=== PATIENT | male | born 1935 | race Two or more races ===

== ENCOUNTER → 2016-12-09 | Outpatient (CLI) | payer OTHER ==
[~2016-12-09] MED LIST: ASPI81CH43 GT; ATEN-60 OR; SIMV-13 OR; [UNRECOGNIZED DRUG - CODE] OR
== END | disposition home or self-care (01) ==
LOC: XYW 09:12
DX: R42 Dizziness and giddiness (principal)
CPT/HCPCS: 93886

== ENCOUNTER 2016-12-30 06:42 | Inpatient (IN) | payer OTHER ==
[~2016-12-30] VITALS: Ht 167.6 cm; Wt 97.6 kg
[~2016-12-30 06:42] MED LIST changes: -ASPI81CH43 GT; +ASPI81CH43 PO
[2016-12-30] MEDS ORDERED: SODIUM CHLORIDE 0.9% 1,000 ML IV ONE (07:01)
[2016-12-30 08:29] LABS: Albumin 3.5 g/dL (3.4-5.0); Alkaline Phosphatase 88 U/L (45-117); Anion Gap 5 (5-15); Aspartate Aminotransferase 54 U/L (15-37); BUN/Creatinine Ratio 12.6; Blood Urea Nitrogen 12 mg/dL (7-18); Calcium 8.2 mg/dL (8.5-10.1); Carbon Dioxide 26 mmol/L (21-32); Chloride 107 mmol/L (98-107); GFR African American 98 mL/min; GFR Non-African American 81 mL/min; Glucose 113 mg/dL (74-106); Magnesium 2.4 mg/dL (1.6-2.6); Potassium 4.4 mmol/L (3.5-5.1); Sodium 138 mmol/L (136-145); Total Protein 6.7 g/dL (6.4-8.2)
[2016-12-30 08:33] LABS: Basophils # (auto) 0 uL; Basophils % (auto) 0.3 % (0.0-2.0); DEFINITIVE VIEW TRANSMISSION; Eosinophils # (auto) 0 uL; Eosinophils % (auto) 0.5 % (0.0-7.0); Hematocrit 39.5 % (41.0-53.0); Hemoglobin 13.5 g/dL (13.5-17.5); Lymphocytes % (auto) 14.4 % (10.0-50.0); Mean Corpuscular Hemoglobin 35.1 pg (28.0-32.0); Mean Corpuscular Hgb Conc. 34.2 g/dL (32.0-36.0); Mean Corpuscular Volume 102.8 fL (80.0-100.0); Mean Platelet Volume 10.2 fL (7.4-10.4); Monocytes # (auto) 0.8 uL; Monocytes % (auto) 10.6 % (0.0-12.0); Neutrophils # (auto) 5.4 uL; Neutrophils % (auto) 74.2 % (37.0-80.0); Platelet Count (auto) 137 10^3/uL (140-450); Red Cell Distribution Width 13.1 % (11.6-16.0); White Blood Cell 7.2 10^3/uL (4.4-10.8)
[2016-12-30 08:37] LABS: INR 1.2 (0.9-1.15); Prothrombin Time 13.1 sec (9.37-12.3)
[2016-12-30] MEDS ORDERED: HYDROcodone-ACET 5/325MG TAB PO PRN (09:15)
[2016-12-30] MEDS ORDERED: PROMETHAZINE HCL 25 MG/ML 1ML IV PRN (09:15)
[2016-12-30] MEDS ORDERED: LACTULOSE 20Gm/30ML SOLN PO PRN (09:15)
[2016-12-30] MEDS ORDERED: ACETAMINOPHEN 500 MG TAB PO PRN (09:15)
[2016-12-30] MEDS ORDERED: TEMAZEPAM 15 MG CAP PO PRN (09:15)
[2016-12-30] MEDS ORDERED: MORPHINE SULF INJ 2 MG/ML SYRINGE 1ML IV PRN ×2 (09:15)
[2016-12-30] MEDS ORDERED: NITROGLYCERIN 0.4 MG SL TAB SL PRN (09:15)
[2016-12-30] MEDS ORDERED: LORazepam 0.5 MG TAB PO PRN (09:15)
[2016-12-30] MEDS: SODIUM CHLORIDE 0.9% 1,000 ML IV SCH ×2 (09:42→22:54)
[2016-12-30] MEDS: ASPirin 81 mg TAB GT SCH ×2 (10:00→21:42)
[2016-12-30 10:01] LABS: B-Type Natriuretic Peptide 90.5 pg/mL (0-100)
[2016-12-30] MEDS: ENOXAPARIN SOD 40 MG/0.4 ML SYRINGE SC SCH (10:42)
[2016-12-30] MEDS: PANTOPRAZOLE 40 MG TAB PO SCH (10:42)
[2016-12-30] MEDS: NITROGLYCERIN 0.2MG/HR TOPICAL PATCH TD SCH (10:42)
[2016-12-30] MEDS: NIACIN 100 MG TAB PO SCH (11:25)
[2016-12-30] MEDS ORDERED: CYAN1TAB14 PO (16:51)
[2016-12-30] MEDS ORDERED: B-COCAP34 OR (16:51)
[2016-12-30 17:49] VITALS: BP 134/56
[2016-12-30 20:00] VITALS: BP 111/48
[2016-12-30] MEDS: ATORVASTATIN 20 MG TAB PO SCH (21:42)
[2016-12-30] MEDS ORDERED: PATIENTS OWN MEDICATION (Simvastatin 40 MG) OR SCH ×2 (22:00)
[2016-12-31 05:09] VITALS: BP 115/47
[2016-12-31 08:03] VITALS: BP 110/57
[2016-12-31 08:23] LABS: Cholesterol 86 mg/dL (< 200); HDL Cholesterol 46 mg/dL (40-59); LDL Cholesterol 42 mg/dL (< 100); Triglycerides 66 mg/dL (< 150)
[2016-12-31] MEDS: ENOXAPARIN SOD 40 MG/0.4 ML SYRINGE SC SCH (10:00)
[2016-12-31] MEDS: NIACIN 100 MG TAB PO SCH (10:00)
[2016-12-31] MEDS: PANTOPRAZOLE 40 MG TAB PO SCH (10:00)
[2016-12-31] MEDS: ASPirin 81 mg TAB GT SCH ×2 (10:00→21:41)
[2016-12-31] MEDS: NITROGLYCERIN 0.2MG/HR TOPICAL PATCH TD SCH (10:00)
[2016-12-31 11:25] VITALS: BP 117/57
[2016-12-31] MEDS: SODIUM CHLORIDE 0.9% 1,000 ML IV SCH (11:54)
[2016-12-31 16:11] VITALS: BP 106/44
[2016-12-31 20:00] VITALS: BP 107/51
[2016-12-31] MEDS: ATORVASTATIN 20 MG TAB PO SCH (21:41)
[2016-12-31 22:00] VITALS: BP 107/51
[2017-01-01] MEDS: SODIUM CHLORIDE 0.9% 1,000 ML IV SCH ×2 (01:14→13:57)
[2017-01-01 04:56] VITALS: BP 109/49
[2017-01-01 08:00] VITALS: BP 114/76
[2017-01-01 09:24] VITALS: BP 114/76
[2017-01-01] MEDS: PANTOPRAZOLE 40 MG TAB PO SCH (10:13)
[2017-01-01] MEDS: NIACIN 100 MG TAB PO SCH (10:13)
[2017-01-01] MEDS: ENOXAPARIN SOD 40 MG/0.4 ML SYRINGE SC SCH (10:13)
[2017-01-01] MEDS: ASPirin 81 mg TAB GT SCH ×2 (10:13→21:31)
[2017-01-01] MEDS: NITROGLYCERIN 0.2MG/HR TOPICAL PATCH TD SCH (10:18)
[2017-01-01 12:06] VITALS: BP 122/60
[2017-01-01] MEDS ORDERED: ENOXAPARIN SOD 60 MG/0.6 ML SYRINGE SC ONE (12:45)
[2017-01-01 14:36] LABS: Cholesterol 89 mg/dL (< 200); HDL Cholesterol 45 mg/dL (40-59); LDL Cholesterol 44 mg/dL (< 100); Triglycerides 79 mg/dL (< 150)
[2017-01-01 17:46] VITALS: BP 121/61
[2017-01-01] MEDS: ENOXAPARIN SOD 100 MG/1 ML SYRINGE SC SCH (21:32)
[2017-01-01] MEDS ORDERED: ATORVASTATIN 20 MG TAB PO SCH (22:00)
[2017-01-01 22:15] VITALS: BP 130/67
[2017-01-02] MEDS: SODIUM CHLORIDE 0.9% 1,000 ML IV SCH (04:15)
[2017-01-02 05:24] VITALS: BP 133/75
[2017-01-02 08:00] VITALS: BP 135/68
[2017-01-02 08:42] VITALS: BP 135/68
[2017-01-02 09:01] VITALS: BP 135/68
[2017-01-02 09:01] LABS: Basophils # (auto) 0 uL; DEFINITIVE VIEW TRANSMISSION; Eosinophils # (auto) 0 uL; Hematocrit 36.7 % (41.0-53.0); Hemoglobin 12.6 g/dL (13.5-17.5); Lymphocytes # (auto) 0.6 uL; Lymphocytes % (auto) 4.6 % (10.0-50.0); Mean Corpuscular Hemoglobin 34.9 pg (28.0-32.0); Mean Corpuscular Hgb Conc. 34.4 g/dL (32.0-36.0); Mean Corpuscular Volume 101.6 fL (80.0-100.0); Mean Platelet Volume 12.1 fL (7.4-10.4); Monocytes # (auto) 1.1 uL; Neutrophils # (auto) 12.2 uL; Neutrophils % (auto) 87.4 % (37.0-80.0); Platelet Count (auto) 106 10^3/uL (140-450); Red Cell Distribution Width 13.5 % (11.6-16.0); SUSPECT VIEW TRANSMISSION; White Blood Cell 13.9 10^3/uL (4.4-10.8)
[2017-01-02] MEDS: ENOXAPARIN SOD 100 MG/1 ML SYRINGE SC SCH (10:00)
[2017-01-02] MEDS: NITROGLYCERIN 0.2MG/HR TOPICAL PATCH TD SCH (10:00)
[2017-01-02 12:25] VITALS: BP 135/68
[2017-01-02 13:00] VITALS: BP 140/65
[2017-01-02] MEDS: NIACIN 100 MG TAB PO SCH (14:03)
[2017-01-02] MEDS: PANTOPRAZOLE 40 MG TAB PO SCH (14:04)
[2017-01-02] MEDS: ASPirin 81 mg TAB GT SCH (14:04)
== END 2017-01-02 13:50 | disposition home or self-care (01) | DRG 303 ==
LOC: ER 06:42 → TELE 06:43 → TELE-E-ADS 16:18 → TELE-WESTW 17:41
PROVIDERS: ADMIT Internal Medicine; ATTEND Internal Medicine
DX: I25.119 Atherosclerotic heart disease of native coronary artery with unspecified angina pectoris (principal); D68.9 Coagulation defect, unspecified; I42.9 Cardiomyopathy, unspecified; I10 Essential (primary) hypertension; E66.9 Obesity, unspecified; I49.5 Sick sinus syndrome; E78.5 Hyperlipidemia, unspecified; D69.6 Thrombocytopenia, unspecified; I25.2 Old myocardial infarction; Z95.5 Presence of coronary angioplasty implant and graft; Z90.89 Acquired absence of other organs; Z87.891 Personal history of nicotine dependence; Z79.899 Other long term (current) drug therapy; Z82.49 Family history of ischemic heart disease and other diseases of the circulatory system; Z68.34 Body mass index [BMI] 34.0-34.9, adult; Z84.89 Family history of other specified conditions
CPT/HCPCS: 36415; 71010; 80053; 80061; 82550; 83036; 83735; 83880; 84443; 84484; 85025; 85379; 85610; 85652; 85730; 86141; 93005; 93306; 93971; 94761; 96360

== ENCOUNTER 2017-01-07 15:28 | Inpatient (IN) | payer OTHER ==
[~2017-01-07] VITALS: Ht 167.6 cm; Wt 80.7 kg
[~2017-01-07 15:28] MED LIST changes: +B-COCAP34 OR; +CYAN1TAB14 PO
[2017-01-07 16:18] LABS: Hematocrit 41.3 % (41.0-53.0); Hemoglobin 14.1 g/dL (13.5-17.5); Mean Corpuscular Hemoglobin 34.4 pg (28.0-32.0); Mean Corpuscular Volume 101.2 fL (80.0-100.0); Mean Platelet Volume 10.9 fL (7.4-10.4); Platelet Count (auto) 257 10^3/uL (140-450); Red Cell Distribution Width 13.6 % (11.6-16.0); SUSPECT VIEW TRANSMISSION; White Blood Cell 26.3 10^3/uL (4.4-10.8)
[2017-01-07 16:29] LABS: Metamyelocytes % 0; Myelocytes % 0; Promyelocytes % 0; Reactive Lymphocytes 0
[2017-01-07 16:44] LABS: Albumin 2.7 g/dL (3.4-5.0); BUN/Creatinine Ratio 17.8; Bilirubin, Total 1.5 mg/dL (0.2-1.0); Calcium 7.8 mg/dL (8.5-10.1); Potassium 3.6 mmol/L (3.5-5.1); Total Protein 7.5 g/dL (6.4-8.2)
[2017-01-07 17:01] LABS: Burr Cells FEW; Large Platelets FEW; Platelet Estimate Adequa
[2017-01-07] MEDS ORDERED: SODIUM CHLORIDE 0.9% 1,000 ML IV ONE ×2 (17:08)
[2017-01-07] MEDS ORDERED: PIPERACILLIN-TAZOB 3.375GM 100 ML IV ONE (17:15)
[2017-01-07] MEDS ORDERED: metroNIDAZOLE 500MG/100ML 100 ML IV ONE (17:15)
[2017-01-07 17:23] LABS: Allen Test Yes; Base Excess -4.1 mmol/L (-2.0-2.0); Blood 02Sat 82.5 % (96-100); Blood COHb 0.3 % (0.5-1.5); Blood MetHb 0.2 % (0.0-1.5); HCO3 16.1 mmol/L (22-26.0); HHb 17.4 % (0.0-5.0); MODE MASK - SIMPLE; O2Hb 82.1 % (94.0-97.0); PCO2 19.9 mmHg (35.0-45.0); PCO2(T) 19.9 mmHg (35.0-45.0); Sample Type Arterial; pH 7.526 (7.350-7.450)
[2017-01-07 17:54] LABS: B-Type Natriuretic Peptide 158.94 pg/mL (0-100); Temperature: 22.7 C (20.0-25.0)
[2017-01-07] MEDS ORDERED: SODIUM CHLORIDE 0.9% 1,000 ML IV SCH (18:08)
[2017-01-07] MEDS ORDERED: LACTULOSE 20Gm/30ML SOLN PO PRN (18:15)
[2017-01-07] MEDS ORDERED: FUROSEMIDE 40 MG/4 ML VIAL IV ONE (18:15)
[2017-01-07] MEDS ORDERED: ACETAMINOPHEN 500 MG TAB PO PRN (18:15)
[2017-01-07] MEDS ORDERED: MORPHINE SULF INJ 2 MG/ML SYRINGE 1ML IV PRN (18:15)
[2017-01-07] MEDS ORDERED: HYDROcodone-ACET 5/325MG TAB PO PRN (18:15)
[2017-01-07] MEDS ORDERED: LORazepam 0.5 MG TAB PO PRN (18:15)
[2017-01-07] MEDS ORDERED: PANTOPRAZOLE SODIUM 40 MG/10 ML VIAL IV ONE (18:15)
[2017-01-07] MEDS ORDERED: PROMETHAZINE HCL 25 MG/ML 1ML IV PRN (18:15)
[2017-01-07] MEDS ORDERED: ALBUTEROL SULF 2.5 MG/0.5ML(0.5%) NEB SOLN NEB PRN (18:15)
[2017-01-07] MEDS ORDERED: DEXTROSE (50%) 50ML SYRG IV PRN (18:15)
[2017-01-07] MEDS ORDERED: TEMAZEPAM 15 MG CAP PO PRN (18:15)
[2017-01-07] MEDS ORDERED: NITROGLYCERIN 0.4 MG SL TAB SL PRN (18:15)
[2017-01-07] MEDS ORDERED: IOHEXOL 350 MG/ML 100ML IJ ONE (18:23)
[2017-01-07] MEDS ORDERED: LINEZOLID 600MG/300ML 300 ML IV ONE (18:30)
[2017-01-07 18:55] LABS: Partial Thromboplastin Time 32.6 sec (22.64-33.71)
[2017-01-07 19:01] LABS: INR 1.38 (0.9-1.15); Prothrombin Time 15.1 sec (9.37-12.3)
[2017-01-07 19:04] LABS: Amylase 61 U/L (25-115)
[2017-01-07 19:38] LABS: Lactic Acid w/Reflex 3.1 mmol/L (0.4-2.0)
[2017-01-07 19:59] VITALS: BP 145/80
[2017-01-07 20:13] LABS: REFLEX LACTIC ACID YES OR NO YES
[2017-01-07 21:00] VITALS: BP 130/75
[2017-01-08] VITALS (8 sets, daily range): BP systolic 125–141; BP diastolic 70–81
[2017-01-08] MEDS: ACCU-CHEK COMFORT CURVE STRIP VI SCH ×4 (00:23→17:44)
[2017-01-08] MEDS: PIPERACILLIN-TAZOB 3.375GM 100 ML IV SCH ×5 (00:23→17:45)
[2017-01-08] MEDS: InsuLIN REG 1unit/0.01ml Soln (100units/ml) SC SCH ×4 (00:25→17:44)
[2017-01-08] MEDS: IPRATROPIUM BROM 0.5 MG/2.5ML INH SOL NEB SCH ×4 (00:37→19:50)
[2017-01-08] MEDS: ALBUTEROL SULF 2.5 MG/0.5ML(0.5%) NEB SOLN NEB SCH ×4 (00:37→19:50)
[2017-01-08 05:46] LABS: Hematocrit 36.8 % (41.0-53.0); Hemoglobin 12.6 g/dL (13.5-17.5); Mean Corpuscular Hemoglobin 34.6 pg (28.0-32.0); Mean Corpuscular Hgb Conc. 34.2 g/dL (32.0-36.0); Mean Corpuscular Volume 101.1 fL (80.0-100.0); Mean Platelet Volume 10.7 fL (7.4-10.4); Platelet Count (auto) 236 10^3/uL (140-450); Red Cell Distribution Width 13.7 % (11.6-16.0); SUSPECT VIEW TRANSMISSION; White Blood Cell 22.4 10^3/uL (4.4-10.8)
[2017-01-08 05:48] LABS: Metamyelocytes % 0; Myelocytes % 0; Promyelocytes % 0; Reactive Lymphocytes 0
[2017-01-08 06:46] LABS: Albumin 1.7 g/dL (3.4-5.0); Alkaline Phosphatase 196 U/L (45-117); Amylase 53 U/L (25-115); Anion Gap 20 (5-15); Aspartate Aminotransferase 80 U/L (15-37); BUN/Creatinine Ratio 15.6; Bilirubin, Total 1.7 mg/dL (0.2-1.0); Blood Urea Nitrogen 19 mg/dL (7-18); Carbon Dioxide 14 mmol/L (21-32); Chloride 99 mmol/L (98-107); Cholesterol < 50 mg/dL (< 200); GFR African American 74 mL/min; GFR Non-African American 61 mL/min; HDL Cholesterol 21 mg/dL (40-59); LDL Cholesterol 31 mg/dL (< 100); Potassium 3.6 mmol/L (3.5-5.1); Sodium 133 mmol/L (136-145); Total Protein 6.5 g/dL (6.4-8.2); Triglycerides 62 mg/dL (< 150)
[2017-01-08 07:31] LABS: Giant Platelets Few; Large Platelets FEW; Platelet Estimate Adequate
[2017-01-08 07:44] LABS: Calcium 7.4 mg/dL (8.5-10.1); Glucose 130 mg/dL (74-106)
[2017-01-08] MEDS: LINEZOLID 600MG/300ML 300 ML IV SCH ×2 (09:01→20:00)
[2017-01-08] MEDS: AZITHROMYCIN 500MG/D5W 250ML 250 ML IV SCH (10:29)
[2017-01-08] MEDS: PANTOPRAZOLE SODIUM 40 MG/10 ML VIAL IV SCH (10:29)
[2017-01-08] MEDS: ENOXAPARIN SOD 40 MG/0.4 ML SYRINGE SC SCH (10:29)
[2017-01-08] MEDS ORDERED: INFLUENZA QUAD 2016-2017 0.5 ML SYRG IM ONE (12:15)
[2017-01-08] MEDS ORDERED: PNEUMOCOCCAL VACC POLYS 25 MCG/0.5 ML VIAL IM ONE (12:15)
[2017-01-08] MEDS: SPIRONOLACTONE 25 MG TAB PO SCH (22:00)
[2017-01-08] MEDS: ceFAZolin 1GM 2 GM in D5W 5% 100 ML IV SCH (22:00)
[2017-01-09] VITALS (38 sets, daily range): BP systolic 86–132; BP diastolic 55–75
[2017-01-09] MEDS ORDERED: ceFAZolin 1GM/50ML D5W 100 ML IV ONE ×2 (00:28→05:43)
[2017-01-09 05:29] LABS: Calcium 7.5 mg/dL (8.5-10.1); Potassium 3.6 mmol/L (3.5-5.1)
[2017-01-09 05:31] LABS: BUN/Creatinine Ratio 18.5
[2017-01-09] MEDS: ceFAZolin 1GM 2 GM in D5W 5% 100 ML IV SCH ×2 (05:41→13:53)
[2017-01-09] MEDS: ACCU-CHEK COMFORT CURVE STRIP VI SCH ×4 (05:45→18:03)
[2017-01-09] MEDS: InsuLIN REG 1unit/0.01ml Soln (100units/ml) SC SCH ×4 (06:00→18:00)
[2017-01-09] MEDS ORDERED: FUROSEMIDE 20 MG TAB PO SCH (06:00)
[2017-01-09] MEDS: IPRATROPIUM BROM 0.5 MG/2.5ML INH SOL NEB SCH ×3 (07:14→12:37)
[2017-01-09] MEDS: ALBUTEROL SULF 2.5 MG/0.5ML(0.5%) NEB SOLN NEB SCH ×3 (07:14→12:37)
[2017-01-09] MEDS: LINEZOLID 600MG/300ML 300 ML IV SCH (08:48)
[2017-01-09] MEDS: ENOXAPARIN SOD 40 MG/0.4 ML SYRINGE SC SCH (10:54)
[2017-01-09] MEDS: PANTOPRAZOLE SODIUM 40 MG/10 ML VIAL IV SCH (10:54)
[2017-01-09] MEDS: AZITHROMYCIN 500MG/D5W 250ML 250 ML IV SCH (10:54)
[2017-01-09] MEDS: SPIRONOLACTONE 25 MG TAB PO SCH (10:56)
[2017-01-09] MEDS ORDERED: BUMETANIDE (0.25 MG/ML) INJ 10ML IV ONE ×2 (11:00→13:00)
[2017-01-09] MEDS ORDERED: ENOXAPARIN SOD 60 MG/0.6 ML SYRINGE SC ONE (15:15)
[2017-01-09 15:29] LABS: Allen Test Yes; Base Excess 1.9 mmol/L (-2.0-2.0); Blood 02Sat 86.5 % (96-100); Blood COHb 0.1 % (0.5-1.5); Blood MetHb 0.2 % (0.0-1.5); HCO3 21.8 mmol/L (22-26.0); HHb 13.5 % (0.0-5.0); MODE MASK - BIPAP; O2Hb 86.2 % (94.0-97.0); PCO2 23.1 mmHg (35.0-45.0); PCO2(T) 23.1 mmHg (35.0-45.0); PO2 48.5 mmHg (80.0-100.0); PO2(T) 48.5 mmHg (80.0-100.0); Room 0265D; Sample Type Arterial; pH 7.593 (7.350-7.450)
[2017-01-09] MEDS ORDERED: ETOMIDATE (2MG/ML) 20ML VIAL IV ONE (15:38)
[2017-01-09] MEDS ORDERED: MIDAZOLAM HCL 1MG/1ML-2 ML VIAL ONE (15:38)
[2017-01-09] MEDS ORDERED: IOHEXOL 350 MG/ML 100ML IJ ONE (15:52)
[2017-01-09] MEDS ORDERED: PROPOFOL 100 ML IV ONE ×2 (15:52→18:54)
[2017-01-09] MEDS ORDERED: SOD CHL 0.45% WITH 20MEQ KCL 1,000 ML IV SCH (17:15)
[2017-01-09 17:36] LABS: Hematocrit 36.8 % (41.0-53.0); Hemoglobin 12.5 g/dL (13.5-17.5); Mean Corpuscular Hemoglobin 34.5 pg (28.0-32.0); Mean Corpuscular Volume 101.4 fL (80.0-100.0); Mean Platelet Volume 9.9 fL (7.4-10.4); Platelet Count (auto) 288 10^3/uL (140-450); Red Cell Distribution Width 13.6 % (11.6-16.0); SUSPECT VIEW TRANSMISSION; White Blood Cell 15.8 10^3/uL (4.4-10.8)
[2017-01-09 17:50] LABS: Metamyelocytes % 0; Myelocytes % 0; Promyelocytes % 0; Reactive Lymphocytes 0
[2017-01-09 18:21] LABS: Large Platelets FEW
[2017-01-09 18:42] LABS: Allen Test Modified; Base Excess -1.3 mmol/L (-2.0-2.0); Blood 02Sat 93.7 % (96-100); Blood COHb 0.3 % (0.5-1.5); Blood MetHb 0.1 % (0.0-1.5); HCO3 19.9 mmol/L (22-26.0); HHb 6.3 % (0.0-5.0); MODE VENT - A/C; O2Hb 93.3 % (94.0-97.0); PCO2 24.7 mmHg (35.0-45.0); PCO2(T) 25.9 mmHg (35.0-45.0); PO2(T) 76.5 mmHg (80.0-100.0); Sample Type Arterial; pH 7.523 (7.350-7.450)
[2017-01-09 19:07] LABS: Platelet Estimate Adequa
[2017-01-09] MEDS: PROPOFOL 100 ML IV SCH (19:46)
[2017-01-09] MEDS: NOREPINEPHRINE BITARTRATE 250 ML IV SCH (21:45)
[2017-01-09] MEDS ORDERED: SODIUM CHLORIDE 0.9% 500 ML IV ONE (21:45)
[2017-01-09] MEDS ORDERED: ENOXAPARIN SOD 100 MG/1 ML SYRINGE SC SCH (22:00)
[2017-01-10] VITALS (108 sets, daily range): BP systolic 80–144; BP diastolic 45–85
[2017-01-10] MEDS: PROPOFOL 100 ML IV SCH ×4 (04:00→21:55)
[2017-01-10] MEDS: MORPHINE SULF INJ 2 MG/ML SYRINGE 1ML IV PRN (04:13)
[2017-01-10 04:40] LABS: DEFINITIVE VIEW TRANSMISSION; Hematocrit 41.6 % (41.0-53.0); Hemoglobin 14.4 g/dL (13.5-17.5); Mean Corpuscular Hemoglobin 35.4 pg (28.0-32.0); Mean Corpuscular Hgb Conc. 34.6 g/dL (32.0-36.0); Mean Corpuscular Volume 102.4 fL (80.0-100.0); Mean Platelet Volume 11.6 fL (7.4-10.4); Platelet Count (auto) 245 10^3/uL (140-450); Red Cell Distribution Width 13.7 % (11.6-16.0); SUSPECT VIEW TRANSMISSION; White Blood Cell 19.2 10^3/uL (4.4-10.8)
[2017-01-10 04:42] LABS: Metamyelocytes % 0; Myelocytes % 0; Promyelocytes % 0; Reactive Lymphocytes 0
[2017-01-10 04:58] LABS: Albumin 2.2 g/dL (3.4-5.0); BUN/Creatinine Ratio 17.5; Bilirubin, Total 1.5 mg/dL (0.2-1.0); Calcium 7.4 mg/dL (8.5-10.1); Potassium 3.9 mmol/L (3.5-5.1); Total Protein 7.4 g/dL (6.4-8.2)
[2017-01-10 05:23] LABS: Platelet Estimate Adequate
[2017-01-10 05:24] LABS: Large Platelets FEW; Macrocytosis Slight
[2017-01-10] MEDS: ACCU-CHEK COMFORT CURVE STRIP VI SCH ×4 (06:00→18:20)
[2017-01-10] MEDS: InsuLIN REG 1unit/0.01ml Soln (100units/ml) SC SCH ×4 (06:00→18:20)
[2017-01-10 06:23] LABS: B-Type Natriuretic Peptide 82.4 pg/mL (0-100); Temperature: 20.5 C (20.0-25.0)
[2017-01-10] MEDS: ENOXAPARIN SOD 40 MG/0.4 ML SYRINGE SC SCH (09:48)
[2017-01-10] MEDS: PANTOPRAZOLE SODIUM 40 MG/10 ML VIAL IV SCH (09:48)
[2017-01-10] MEDS ORDERED: cefTRIAXone 1GM/50ML D5W 50 ML IV SCH (10:00)
[2017-01-10] MEDS ORDERED: Fibersource Hn 1 Liter GT SCH (11:45)
[2017-01-10] MEDS ORDERED: ASPirin 81 mg TAB PO ONE (12:00)
[2017-01-10 12:44] LABS: Allen Test Yes; Base Excess -5.2 mmol/L (-2.0-2.0); Blood 02Sat 95.1 % (96-100); Blood COHb 0.5 % (0.5-1.5); Blood MetHb 0.3 % (0.0-1.5); HCO3 17.1 mmol/L (22-26.0); HHb 4.9 % (0.0-5.0); MODE VENT - A/C; O2Hb 94.3 % (94.0-97.0); PCO2 25.4 mmHg (35.0-45.0); PCO2(T) 25.4 mmHg (35.0-45.0); PO2 80.7 mmHg (80.0-100.0); PO2(T) 80.7 mmHg (80.0-100.0); Sample Type Arterial; pH 7.445 (7.350-7.450)
[2017-01-10] MEDS: PIPERACILLIN-TAZOB 2.25GM 50 ML IV SCH ×2 (14:12→18:21)
[2017-01-10 14:22] LABS: INR 1.51 (0.9-1.15); Partial Thromboplastin Time 33.9 sec (22.64-33.71); Prothrombin Time 16.5 sec (9.37-12.3)
[2017-01-10 15:25] LABS: Hepatitis B Surface Antibody Negative
[2017-01-10 18:01] LABS: Urine Bilirubin Negative (Negative); Urine Blood TRACE /uL (Negative); Urine Color Yellow (Yellow); Urine Glucose Normal (Normal); Urine Ketone Negative (Negative); Urine Mucus FEW (None Seen); Urine Nitrite Negative (Negative); Urine RBC 9 /hpf (0 - 3); Urine Squamous Epithelial Cell FEW /hpf (<5); Urine Urobilinogen Normal (Negative); Urine pH 5.5 (5.0-8.0)
[2017-01-10] MEDS: NOREPINEPHRINE BITARTRATE 250 ML IV SCH ×2 (20:00→21:35)
[2017-01-11] VITALS (107 sets, daily range): BP systolic 100–135; BP diastolic 50–72
[2017-01-11] MEDS: ACCU-CHEK COMFORT CURVE STRIP VI SCH ×5 (00:13→23:30)
[2017-01-11] MEDS: InsuLIN REG 1unit/0.01ml Soln (100units/ml) SC SCH ×4 (00:13→23:30)
[2017-01-11] MEDS: PIPERACILLIN-TAZOB 2.25GM 50 ML IV SCH ×2 (00:13→05:44)
[2017-01-11] MEDS: PROPOFOL 100 ML IV SCH ×3 (02:00→21:00)
[2017-01-11 04:12] LABS: DEFINITIVE VIEW TRANSMISSION; Hematocrit 37.2 % (41.0-53.0); Hemoglobin 12.6 g/dL (13.5-17.5); Mean Corpuscular Hemoglobin 34.8 pg (28.0-32.0); Mean Corpuscular Volume 102.5 fL (80.0-100.0); Mean Platelet Volume 9.6 fL (7.4-10.4); Platelet Count (auto) 282 10^3/uL (140-450); Red Cell Distribution Width 14.1 % (11.6-16.0); SUSPECT VIEW TRANSMISSION
[2017-01-11 04:14] LABS: Albumin 1.7 g/dL (3.4-5.0); Potassium 3.6 mmol/L (3.5-5.1)
[2017-01-11 04:16] LABS: BUN/Creatinine Ratio 21.9
[2017-01-11 04:19] LABS: Bilirubin, Total 1.4 mg/dL (0.2-1.0); Total Protein 6.4 g/dL (6.4-8.2)
[2017-01-11 04:23] LABS: White Blood Cell 30.9 10^3/uL (4.4-10.8)
[2017-01-11 04:24] LABS: Metamyelocytes % 0; Myelocytes % 0; Promyelocytes % 0; Reactive Lymphocytes 0
[2017-01-11 05:56] LABS: Urine Bilirubin Negative (Negative); Urine Blood Negative /uL (Negative); Urine Color Yellow (Yellow); Urine Glucose Normal (Normal); Urine Ketone Negative (Negative); Urine Mucus FEW (None Seen); Urine Nitrite Negative (Negative); Urine RBC 1 /hpf (0 - 3); Urine Urobilinogen Normal (Negative)
[2017-01-11 08:02] LABS: Macrocytosis Slight; Platelet Estimate Adequate
[2017-01-11 09:31] LABS: Allen Test Yes; Base Excess 0.8 mmol/L (-2.0-2.0); Blood 02Sat 97.4 % (96-100); Blood COHb 0.2 % (0.5-1.5); Blood MetHb 0.3 % (0.0-1.5); HCO3 24.1 mmol/L (22-26.0); HHb 2.6 % (0.0-5.0); MODE VENT - A/C; O2Hb 96.9 % (94.0-97.0); PCO2 34.2 mmHg (35.0-45.0); PCO2(T) 34.2 mmHg (35.0-45.0); PO2 104.4 mmHg (80.0-100.0); PO2(T) 104.4 mmHg (80.0-100.0); Sample Type Arterial; pH 7.465 (7.350-7.450)
[2017-01-11] MEDS: ASPirin 81 mg TAB PO SCH (10:32)
[2017-01-11] MEDS: PANTOPRAZOLE SODIUM 40 MG/10 ML VIAL IV SCH (10:32)
[2017-01-11] MEDS: ENOXAPARIN SOD 40 MG/0.4 ML SYRINGE SC SCH (10:32)
[2017-01-11] MEDS: PIPERACILLIN-TAZOB 3.375GM 100 ML IV SCH ×3 (12:23→23:29)
[2017-01-11] MEDS ORDERED: VANCOMYCIN PER PHARMACY 0 MG IV SCH (14:15)
[2017-01-11] MEDS: VANCOMYCIN 1GM/250ML D5W 250 ML IV SCH (15:53)
[2017-01-11 17:00] LABS: Allen Test Yes; Base Excess 2.1 mmol/L (-2.0-2.0); Blood COHb 0.3 % (0.5-1.5); Blood MetHb 0.3 % (0.0-1.5); HCO3 25.3 mmol/L (22-26.0); MODE VENT - A/C; O2Hb 94.4 % (94.0-97.0); PO2 79.5 mmHg (80.0-100.0); PO2(T) 79.5 mmHg (80.0-100.0); Sample Type Arterial; pH 7.477 (7.350-7.450)
[2017-01-11] MEDS: NOREPINEPHRINE BITARTRATE 250 ML IV SCH (21:35)
[2017-01-12] VITALS (59 sets, daily range): BP systolic 101–133; BP diastolic 53–72
[2017-01-12] MEDS: VANCOMYCIN 1GM/250ML D5W 250 ML IV SCH ×2 (04:01→15:46)
[2017-01-12 04:23] LABS: DEFINITIVE Y; Hematocrit 34.1 % (41.0-53.0); Hemoglobin 11.5 g/dL (13.5-17.5); Mean Corpuscular Hemoglobin 34.6 pg (28.0-32.0); Mean Corpuscular Hgb Conc. 33.7 g/dL (32.0-36.0); Mean Corpuscular Volume 102.6 fL (80.0-100.0); Mean Platelet Volume 9.2 fL (7.4-10.4); Platelet Count (auto) 253 10^3/uL (140-450); Red Cell Distribution Width 13.6 % (11.6-16.0); SUSPECT Y; White Blood Cell 21.2 10^3/uL (4.4-10.8)
[2017-01-12 04:29] LABS: Metamyelocytes % 0; Myelocytes % 0; Promyelocytes % 0; Reactive Lymphocytes 0
[2017-01-12 04:42] LABS: Albumin 1.6 g/dL (3.4-5.0); Calcium 7.2 mg/dL (8.5-10.1); Potassium 3.6 mmol/L (3.5-5.1)
[2017-01-12 04:48] LABS: Bilirubin, Total 0.8 mg/dL (0.2-1.0); Total Protein 5.8 g/dL (6.4-8.2)
[2017-01-12] MEDS: PROPOFOL 100 ML IV SCH ×4 (05:00→23:22)
[2017-01-12 05:25] LABS: Macrocytosis Slight; Platelet Estimate Adequate
[2017-01-12] MEDS: PIPERACILLIN-TAZOB 3.375GM 100 ML IV SCH ×4 (06:00→23:35)
[2017-01-12] MEDS: InsuLIN REG 1unit/0.01ml Soln (100units/ml) SC SCH ×4 (06:00→23:22)
[2017-01-12] MEDS: ACCU-CHEK COMFORT CURVE STRIP VI SCH ×4 (06:24→23:21)
[2017-01-12 08:20] LABS: Allen Test Yes; Base Excess 1.5 mmol/L (-2.0-2.0); Blood 02Sat 96.4 % (96-100); Blood COHb 0.3 % (0.5-1.5); Blood MetHb 0.3 % (0.0-1.5); HCO3 23.8 mmol/L (22-26.0); HHb 3.6 % (0.0-5.0); MODE VENT - A/C; O2Hb 95.8 % (94.0-97.0); PCO2 30.5 mmHg (35.0-45.0); PCO2(T) 30.5 mmHg (35.0-45.0); PO2 86.5 mmHg (80.0-100.0); PO2(T) 86.5 mmHg (80.0-100.0); Sample Type Arterial; pH 7.511 (7.350-7.450)
[2017-01-12] MEDS: PANTOPRAZOLE SODIUM 40 MG/10 ML VIAL IV SCH (10:19)
[2017-01-12] MEDS: ASPirin 81 mg TAB PO SCH (10:19)
[2017-01-12] MEDS: ENOXAPARIN SOD 40 MG/0.4 ML SYRINGE SC SCH (10:20)
[2017-01-12] MEDS ORDERED: POTASSIUM CHL 10% (20 MEQ/15ML) ORAL SOLN GT ONE (15:30)
[2017-01-12] MEDS ORDERED: FUROSEMIDE 40 MG/4 ML VIAL IV ONE (15:30)
[2017-01-12] MEDS ORDERED: FUROSEMIDE 40 MG/4 ML VIAL ONE (15:31)
[2017-01-12] MEDS ORDERED: POTASSIUM CHL 10% (20 MEQ/15ML) ORAL SOLN ONE (15:32)
[2017-01-13] VITALS (61 sets, daily range): BP systolic 108–152; BP diastolic 53–93
[2017-01-13 03:13] LABS: Basophils # (auto) 0.1 uL; Basophils % (auto) 0.5 % (0.0-2.0); CONDITION Y; DEFINITIVE Y; Eosinophils # (auto) 0.1 uL; Eosinophils % (auto) 0.4 % (0.0-7.0); Hemoglobin 12.1 g/dL (13.5-17.5); Lymphocytes # (auto) 1.1 uL; Lymphocytes % (auto) 8.1 % (10.0-50.0); Mean Corpuscular Hemoglobin 34.2 pg (28.0-32.0); Mean Corpuscular Hgb Conc. 33.5 g/dL (32.0-36.0); Mean Corpuscular Volume 102.2 fL (80.0-100.0); Mean Platelet Volume 8.7 fL (7.4-10.4); Monocytes # (auto) 0.6 uL; Monocytes % (auto) 4.1 % (0.0-12.0); Neutrophils # (auto) 11.8 uL; Neutrophils % (auto) 86.9 % (37.0-80.0); Platelet Count (auto) 275 10^3/uL (140-450); Red Cell Distribution Width 13.7 % (11.6-16.0); SUSPECT Y; White Blood Cell 13.5 10^3/uL (4.4-10.8)
[2017-01-13] MEDS: NOREPINEPHRINE BITARTRATE 250 ML IV SCH (03:23)
[2017-01-13 03:38] LABS: Albumin 1.7 g/dL (3.4-5.0); BUN/Creatinine Ratio 21.2; Calcium 7.1 mg/dL (8.5-10.1)
[2017-01-13 03:40] LABS: Bilirubin, Total 0.9 mg/dL (0.2-1.0); Total Protein 6.2 g/dL (6.4-8.2)
[2017-01-13] MEDS: PROPOFOL 100 ML IV SCH (04:42)
[2017-01-13] MEDS: VANCOMYCIN 1GM/250ML D5W 250 ML IV SCH ×2 (04:43→15:49)
[2017-01-13] MEDS: PIPERACILLIN-TAZOB 3.375GM 100 ML IV SCH ×4 (06:00→23:31)
[2017-01-13] MEDS: ACCU-CHEK COMFORT CURVE STRIP VI SCH ×4 (06:54→23:31)
[2017-01-13] MEDS: InsuLIN REG 1unit/0.01ml Soln (100units/ml) SC SCH ×4 (06:54→23:31)
[2017-01-13] MEDS: ENOXAPARIN SOD 40 MG/0.4 ML SYRINGE SC SCH (09:24)
[2017-01-13] MEDS: PANTOPRAZOLE SODIUM 40 MG/10 ML VIAL IV SCH (09:24)
[2017-01-13] MEDS: ASPirin 81 mg TAB PO SCH (09:24)
[2017-01-13 10:03] LABS: Allen Test Modified; Base Excess -0.3 mmol/L (-2.0-2.0); Blood 02Sat 96.7 % (96-100); Blood COHb 0.4 % (0.5-1.5); Blood MetHb 0.2 % (0.0-1.5); HCO3 21.5 mmol/L (22-26.0); HHb 3.3 % (0.0-5.0); MODE VENT - CPAP; O2Hb 96.1 % (94.0-97.0); PCO2 27.6 mmHg (35.0-45.0); PCO2(T) 27.6 mmHg (35.0-45.0); PO2 90.6 mmHg (80.0-100.0); PO2(T) 90.6 mmHg (80.0-100.0); Sample Type Arterial; Spont Vt 510; pH 7.509 (7.350-7.450)
[2017-01-13] MEDS ORDERED: FUROSEMIDE 40 MG/4 ML VIAL IV ONE (10:45)
[2017-01-13] MEDS ORDERED: POTASSIUM CHL 10% (20 MEQ/15ML) ORAL SOLN PO ONE (10:45)
[2017-01-13] MEDS: MORPHINE SULF INJ 2 MG/ML SYRINGE 1ML IV PRN (23:55)
[2017-01-14] VITALS (35 sets, daily range): BP systolic 115–148; BP diastolic 56–80
[2017-01-14] MEDS: VANCOMYCIN 1GM/250ML D5W 250 ML IV SCH ×2 (03:25→15:50)
[2017-01-14 03:34] LABS: Basophils # (auto) 0 uL; CONDITION AutoValidated; DEFINITIVE SEE PRINTOUT; Eosinophils # (auto) 0 uL; Eosinophils % (auto) 0.4 % (0.0-7.0); Hematocrit 36.8 % (41.0-53.0); Hemoglobin 12.3 g/dL (13.5-17.5); Lymphocytes # (auto) 1.3 uL; Lymphocytes % (auto) 10.8 % (10.0-50.0); Mean Corpuscular Hgb Conc. 33.5 g/dL (32.0-36.0); Mean Corpuscular Volume 101.8 fL (80.0-100.0); Mean Platelet Volume 8.6 fL (7.4-10.4); Monocytes # (auto) 0.9 uL; Monocytes % (auto) 7.9 % (0.0-12.0); Neutrophils # (auto) 9.4 uL; Neutrophils % (auto) 80.9 % (37.0-80.0); Platelet Count (auto) 285 10^3/uL (140-450); Red Cell Distribution Width 13.6 % (11.6-16.0); White Blood Cell 11.6 10^3/uL (4.4-10.8)
[2017-01-14 03:58] LABS: Albumin 1.7 g/dL (3.4-5.0); BUN/Creatinine Ratio 22.5; Bilirubin, Total 1.2 mg/dL (0.2-1.0); Calcium 6.9 mg/dL (8.5-10.1); Potassium 3.9 mmol/L (3.5-5.1); Total Protein 6.4 g/dL (6.4-8.2)
[2017-01-14] MEDS: MORPHINE SULF INJ 2 MG/ML SYRINGE 1ML IV PRN ×2 (04:29→20:04)
[2017-01-14] MEDS: InsuLIN REG 1unit/0.01ml Soln (100units/ml) SC SCH ×2 (05:30→11:41)
[2017-01-14] MEDS: ACCU-CHEK COMFORT CURVE STRIP VI SCH ×2 (05:30→11:41)
[2017-01-14] MEDS: PIPERACILLIN-TAZOB 3.375GM 100 ML IV SCH ×4 (05:30→23:30)
[2017-01-14] MEDS: ASPirin 81 mg TAB PO SCH (09:44)
[2017-01-14] MEDS: ENOXAPARIN SOD 40 MG/0.4 ML SYRINGE SC SCH (09:44)
[2017-01-14] MEDS: PANTOPRAZOLE SODIUM 40 MG/10 ML VIAL IV SCH (09:45)
[2017-01-14] MEDS ORDERED: POTASSIUM CHL 20 Meq TABLET PO ONE (15:30)
[2017-01-14] MEDS ORDERED: FUROSEMIDE 40 MG/4 ML VIAL IV ONE (15:30)
[2017-01-14] MEDS ORDERED: MORPHINE SULF INJ 2 MG/ML SYRINGE 1ML IV PRN (15:45)
[2017-01-15] VITALS (65 sets, daily range): BP systolic 104–139; BP diastolic 55–88
[2017-01-15] MEDS: MORPHINE SULF INJ 2 MG/ML SYRINGE 1ML IV PRN ×4 (01:24→21:03)
[2017-01-15 02:48] LABS: Basophils # (auto) 0 uL; Basophils % (auto) 0.2 % (0.0-2.0); CONDITION AutoValidated; Eosinophils # (auto) 0 uL; Eosinophils % (auto) 0.4 % (0.0-7.0); Hematocrit 34.8 % (41.0-53.0); Hemoglobin 11.7 g/dL (13.5-17.5); Lymphocytes # (auto) 1.2 uL; Lymphocytes % (auto) 9.3 % (10.0-50.0); Mean Corpuscular Hemoglobin 34.3 pg (28.0-32.0); Mean Corpuscular Hgb Conc. 33.8 g/dL (32.0-36.0); Mean Corpuscular Volume 101.5 fL (80.0-100.0); Mean Platelet Volume 8.2 fL (7.4-10.4); Monocytes # (auto) 0.9 uL; Monocytes % (auto) 6.8 % (0.0-12.0); Neutrophils % (auto) 83.3 % (37.0-80.0); Platelet Count (auto) 275 10^3/uL (140-450); Red Cell Distribution Width 13.7 % (11.6-16.0); White Blood Cell 13.2 10^3/uL (4.4-10.8)
[2017-01-15 03:11] LABS: Albumin 1.6 g/dL (3.4-5.0); BUN/Creatinine Ratio 21.7; Calcium 6.3 mg/dL (8.5-10.1); Potassium 3.8 mmol/L (3.5-5.1)
[2017-01-15 03:14] LABS: Bilirubin, Total 1.1 mg/dL (0.2-1.0); Total Protein 6.1 g/dL (6.4-8.2)
[2017-01-15] MEDS: VANCOMYCIN 1GM/250ML D5W 250 ML IV SCH ×2 (03:41→16:02)
[2017-01-15] MEDS: PIPERACILLIN-TAZOB 3.375GM 100 ML IV SCH ×4 (05:29→23:32)
[2017-01-15] MEDS: POTASSIUM CHL 20 Meq TABLET PO SCH (09:58)
[2017-01-15] MEDS: FUROSEMIDE 40 MG TAB PO SCH (09:58)
[2017-01-15] MEDS: ENOXAPARIN SOD 40 MG/0.4 ML SYRINGE SC SCH (09:59)
[2017-01-15] MEDS: PANTOPRAZOLE 40 MG TAB PO SCH (09:59)
[2017-01-15] MEDS: ASPirin 81 mg TAB PO SCH (10:00)
[2017-01-15] MEDS ORDERED: HYDROcodone-ACET 5/325MG TAB PO PRN (13:45)
[2017-01-15 13:51] LABS: Allen Test Yes; Base Excess -2.1 mmol/L (-2.0-2.0); Blood 02Sat 95.6 % (96-100); Blood COHb 0.4 % (0.5-1.5); Blood MetHb 0.1 % (0.0-1.5); HCO3 19.3 mmol/L (22-26.0); HHb 4.4 % (0.0-5.0); MODE MASK - BIPAP; O2Hb 95.1 % (94.0-97.0); PCO2 25.1 mmHg (35.0-45.0); PCO2(T) 25.1 mmHg (35.0-45.0); PIP 12; PO2 79.5 mmHg (80.0-100.0); PO2(T) 79.5 mmHg (80.0-100.0); Sample Type Arterial; pH 7.503 (7.350-7.450)
[2017-01-16] VITALS (38 sets, daily range): BP systolic 109–137; BP diastolic 55–78
[2017-01-16] MEDS: VANCOMYCIN 1GM/250ML D5W 250 ML IV SCH ×2 (03:33→16:19)
[2017-01-16] MEDS: MORPHINE SULF INJ 2 MG/ML SYRINGE 1ML IV PRN ×2 (04:12→11:00)
[2017-01-16 04:39] LABS: Basophils # (auto) 0.1 uL; Basophils % (auto) 0.5 % (0.0-2.0); CONDITION AutoValidated; DEFINITIVE SEE PRINTOUT; Eosinophils # (auto) 0.1 uL; Eosinophils % (auto) 0.5 % (0.0-7.0); Hematocrit 37.2 % (41.0-53.0); Hemoglobin 12.3 g/dL (13.5-17.5); Lymphocytes # (auto) 1.4 uL; Lymphocytes % (auto) 11.1 % (10.0-50.0); Mean Corpuscular Hemoglobin 33.9 pg (28.0-32.0); Mean Corpuscular Hgb Conc. 33.1 g/dL (32.0-36.0); Mean Corpuscular Volume 102.4 fL (80.0-100.0); Mean Platelet Volume 8.5 fL (7.4-10.4); Monocytes % (auto) 8.3 % (0.0-12.0); Neutrophils % (auto) 79.6 % (37.0-80.0); Platelet Count (auto) 283 10^3/uL (140-450); Red Cell Distribution Width 13.6 % (11.6-16.0); White Blood Cell 12.6 10^3/uL (4.4-10.8)
[2017-01-16 05:00] LABS: Albumin 1.9 g/dL (3.4-5.0); BUN/Creatinine Ratio 22.8; Calcium 7.2 mg/dL (8.5-10.1); Potassium 4.2 mmol/L (3.5-5.1)
[2017-01-16 05:03] LABS: Bilirubin, Total 1.2 mg/dL (0.2-1.0); Total Protein 7.2 g/dL (6.4-8.2)
[2017-01-16] MEDS: PIPERACILLIN-TAZOB 3.375GM 100 ML IV SCH ×4 (05:28→23:54)
[2017-01-16] MEDS: ENOXAPARIN SOD 40 MG/0.4 ML SYRINGE SC SCH (09:38)
[2017-01-16] MEDS: PANTOPRAZOLE 40 MG TAB PO SCH (09:39)
[2017-01-16] MEDS: ASPirin 81 mg TAB PO SCH (09:39)
[2017-01-16] MEDS: POTASSIUM CHL 20 Meq TABLET PO SCH (09:39)
[2017-01-16] MEDS: FUROSEMIDE 40 MG TAB PO SCH (09:41)
[2017-01-16] MEDS: Boost Glucose Control 8 Ounces PO SCH (18:17)
[2017-01-16] MEDS: PRO-STAT 64 30ML PO SCH (18:17)
[2017-01-17] VITALS (8 sets, daily range): BP systolic 119–133; BP diastolic 66–73
[2017-01-17] MEDS: VANCOMYCIN 1GM/250ML D5W 250 ML IV SCH (03:20)
[2017-01-17 04:37] LABS: Basophils # (auto) 0 uL; Basophils % (auto) 0.3 % (0.0-2.0); CONDITION AutoValidated; Eosinophils # (auto) 0.1 uL; Eosinophils % (auto) 0.5 % (0.0-7.0); Hematocrit 34.1 % (41.0-53.0); Hemoglobin 11.5 g/dL (13.5-17.5); Lymphocytes # (auto) 1.2 uL; Lymphocytes % (auto) 11.2 % (10.0-50.0); Mean Corpuscular Hemoglobin 33.9 pg (28.0-32.0); Mean Corpuscular Hgb Conc. 33.7 g/dL (32.0-36.0); Mean Corpuscular Volume 100.7 fL (80.0-100.0); Mean Platelet Volume 7.9 fL (7.4-10.4); Monocytes # (auto) 0.7 uL; Monocytes % (auto) 6.7 % (0.0-12.0); Neutrophils # (auto) 8.6 uL; Neutrophils % (auto) 81.3 % (37.0-80.0); Platelet Count (auto) 273 10^3/uL (140-450); Red Cell Distribution Width 13.3 % (11.6-16.0); White Blood Cell 10.5 10^3/uL (4.4-10.8)
[2017-01-17 04:57] LABS: Albumin 1.8 g/dL (3.4-5.0); BUN/Creatinine Ratio 21.5; Bilirubin, Total 1.2 mg/dL (0.2-1.0); Calcium 7.4 mg/dL (8.5-10.1); Potassium 3.8 mmol/L (3.5-5.1); Total Protein 6.4 g/dL (6.4-8.2)
[2017-01-17] MEDS: PIPERACILLIN-TAZOB 3.375GM 100 ML IV SCH (05:51)
[2017-01-17] MEDS: PRO-STAT 64 30ML PO SCH ×3 (08:00→18:18)
[2017-01-17] MEDS: Boost Glucose Control 8 Ounces PO SCH ×3 (08:00→18:17)
[2017-01-17] MEDS: POTASSIUM CHL 20 Meq TABLET PO SCH (10:40)
[2017-01-17] MEDS: PANTOPRAZOLE 40 MG TAB PO SCH (10:41)
[2017-01-17] MEDS: ENOXAPARIN SOD 40 MG/0.4 ML SYRINGE SC SCH (10:41)
[2017-01-17] MEDS: FUROSEMIDE 40 MG TAB PO SCH (10:41)
[2017-01-17] MEDS: ASPirin 81 mg TAB PO SCH (10:41)
[2017-01-17] MEDS ORDERED: FUROSEMIDE 20 MG/2 ML VIAL IV ONE (12:45)
[2017-01-17] MEDS ORDERED: POTASSIUM CHL 20 Meq TABLET PO ONE (12:45)
[2017-01-17] MEDS: cefTRIAXone 1GM/50ML D5W 50 ML IV SCH (12:50)
[2017-01-17] MEDS: CLOPIDOGREL BISULFATE 75 MG TAB PO SCH (14:10)
[2017-01-17] MEDS ORDERED: IOHEXOL 300 MG/ML 100ML BOTTLE IJ ONE (14:21)
[2017-01-18 05:10] VITALS: BP 115/68
[2017-01-18 07:15] LABS: Basophils # (auto) 0 uL; Basophils % (auto) 0.2 % (0.0-2.0); CONDITION Y; Eosinophils # (auto) 0 uL; Eosinophils % (auto) 0.3 % (0.0-7.0); Hematocrit 36.1 % (41.0-53.0); Hemoglobin 12.2 g/dL (13.5-17.5); Lymphocytes # (auto) 1.2 uL; Lymphocytes % (auto) 11.1 % (10.0-50.0); Mean Corpuscular Hemoglobin 34.2 pg (28.0-32.0); Mean Corpuscular Hgb Conc. 33.8 g/dL (32.0-36.0); Mean Platelet Volume 8.4 fL (7.4-10.4); Monocytes # (auto) 0.8 uL; Neutrophils # (auto) 8.9 uL; Neutrophils % (auto) 81.4 % (37.0-80.0); Platelet Count (auto) 318 10^3/uL (140-450); Red Cell Distribution Width 13.4 % (11.6-16.0); White Blood Cell 10.9 10^3/uL (4.4-10.8)
[2017-01-18 07:59] LABS: Albumin 2.2 g/dL (3.4-5.0); BUN/Creatinine Ratio 21.6; Bilirubin, Total 0.9 mg/dL (0.2-1.0); Calcium 8.3 mg/dL (8.5-10.1); Potassium 3.8 mmol/L (3.5-5.1); Total Protein 7.6 g/dL (6.4-8.2)
[2017-01-18] MEDS: PRO-STAT 64 30ML PO SCH ×3 (08:55→18:03)
[2017-01-18] MEDS: Boost Glucose Control 8 Ounces PO SCH ×3 (08:55→18:03)
[2017-01-18 09:50] VITALS: BP 110/62
[2017-01-18] MEDS: POTASSIUM CHL 20 Meq TABLET PO SCH (09:56)
[2017-01-18] MEDS: ASPirin 81 mg TAB PO SCH (09:56)
[2017-01-18] MEDS: CLOPIDOGREL BISULFATE 75 MG TAB PO SCH (09:56)
[2017-01-18] MEDS: cefTRIAXone 1GM/50ML D5W 50 ML IV SCH (09:56)
[2017-01-18] MEDS: PANTOPRAZOLE 40 MG TAB PO SCH (09:57)
[2017-01-18] MEDS: ENOXAPARIN SOD 40 MG/0.4 ML SYRINGE SC SCH (09:57)
[2017-01-18] MEDS: FUROSEMIDE 40 MG TAB PO SCH (09:58)
[2017-01-18 13:06] VITALS: BP 117/66
[2017-01-18 16:13] VITALS: BP 114/69
[2017-01-18 21:36] VITALS: BP 119/62
[2017-01-19 05:35] VITALS: BP 107/67
[2017-01-19 09:00] VITALS: BP 112/64
[2017-01-19] MEDS: cefTRIAXone 1GM/50ML D5W 50 ML IV SCH (09:32)
[2017-01-19] MEDS: ENOXAPARIN SOD 40 MG/0.4 ML SYRINGE SC SCH (09:33)
[2017-01-19] MEDS: POTASSIUM CHL 20 Meq TABLET PO SCH (09:34)
[2017-01-19] MEDS: ASPirin 81 mg TAB PO SCH (09:34)
[2017-01-19] MEDS: CLOPIDOGREL BISULFATE 75 MG TAB PO SCH (09:34)
[2017-01-19] MEDS: PANTOPRAZOLE 40 MG TAB PO SCH (09:34)
[2017-01-19] MEDS: FUROSEMIDE 40 MG TAB PO SCH (09:34)
[2017-01-19] MEDS: PRO-STAT 64 30ML PO SCH ×3 (09:35→18:29)
[2017-01-19] MEDS: Boost Glucose Control 8 Ounces PO SCH ×3 (09:35→18:30)
[2017-01-19 13:00] VITALS: BP 130/74
[2017-01-19 14:18] LABS: Allen Test Yes; Base Excess 0.7 mmol/L (-2.0-2.0); Blood 02Sat 92.5 % (96-100); Blood COHb 0.3 % (0.5-1.5); Blood MetHb 0.2 % (0.0-1.5); HCO3 19.3 mmol/L (22-26.0); HHb 7.5 % (0.0-5.0); MODE OXYMIZER; PCO2 18.3 mmHg (35.0-45.0); PCO2(T) 18.3 mmHg (35.0-45.0); PO2 58.1 mmHg (80.0-100.0); PO2(T) 58.1 mmHg (80.0-100.0); Room 0248T; Sample Type Arterial; pH 7.642 (7.350-7.450)
[2017-01-19 17:09] VITALS: BP 133/70
[2017-01-19 22:24] VITALS: BP 128/69
[2017-01-20 04:07] VITALS: BP 128/69
[2017-01-20 05:57] VITALS: BP 116/64
[2017-01-20 05:57] LABS: Basophils # (auto) 0 uL; Basophils % (auto) 0.4 % (0.0-2.0); CONDITION Y; Eosinophils # (auto) 0.1 uL; Eosinophils % (auto) 0.6 % (0.0-7.0); Hematocrit 32.9 % (41.0-53.0); Hemoglobin 11.1 g/dL (13.5-17.5); Lymphocytes # (auto) 1.5 uL; Lymphocytes % (auto) 14.3 % (10.0-50.0); Mean Corpuscular Hemoglobin 34.4 pg (28.0-32.0); Mean Corpuscular Hgb Conc. 33.9 g/dL (32.0-36.0); Mean Corpuscular Volume 101.5 fL (80.0-100.0); Mean Platelet Volume 8.3 fL (7.4-10.4); Monocytes # (auto) 0.8 uL; Monocytes % (auto) 7.7 % (0.0-12.0); Neutrophils # (auto) 8.1 uL; Platelet Count (auto) 310 10^3/uL (140-450); White Blood Cell 10.5 10^3/uL (4.4-10.8)
[2017-01-20 06:07] LABS: Albumin 2.1 g/dL (3.4-5.0); BUN/Creatinine Ratio 21.7; Calcium 7.9 mg/dL (8.5-10.1); Potassium 3.8 mmol/L (3.5-5.1)
[2017-01-20 06:10] LABS: Bilirubin, Total 0.7 mg/dL (0.2-1.0); Total Protein 7.2 g/dL (6.4-8.2)
[2017-01-20] MEDS: Boost Glucose Control 8 Ounces PO SCH ×3 (08:14→18:00)
[2017-01-20] MEDS: PRO-STAT 64 30ML PO SCH ×3 (08:14→18:00)
[2017-01-20 09:00] VITALS: BP 142/70
[2017-01-20] MEDS: cefTRIAXone 1GM/50ML D5W 50 ML IV SCH (09:27)
[2017-01-20] MEDS: FUROSEMIDE 40 MG TAB PO SCH (09:28)
[2017-01-20] MEDS: ASPirin 81 mg TAB PO SCH (09:28)
[2017-01-20] MEDS: POTASSIUM CHL 20 Meq TABLET PO SCH (09:28)
[2017-01-20] MEDS: PANTOPRAZOLE 40 MG TAB PO SCH (09:28)
[2017-01-20] MEDS: CLOPIDOGREL BISULFATE 75 MG TAB PO SCH (09:28)
[2017-01-20 11:10] LABS: INR 1.24 (0.9-1.15); Partial Thromboplastin Time 27.7 sec (22.64-33.71)
[2017-01-20 11:11] LABS: Prothrombin Time 13.5 sec (9.37-12.3)
[2017-01-20 13:33] VITALS: BP 128/67
[2017-01-20 17:27] VITALS: BP 126/80
[2017-01-20 21:30] VITALS: BP 121/68
[2017-01-21 05:03] VITALS: BP 112/66
[2017-01-21 06:18] LABS: Basophils # (auto) 0.1 uL; Basophils % (auto) 0.6 % (0.0-2.0); CONDITION Y; DEFINITIVE SEE PRINTOUT; Eosinophils # (auto) 0.1 uL; Eosinophils % (auto) 1.3 % (0.0-7.0); Hematocrit 32.3 % (41.0-53.0); Hemoglobin 10.9 g/dL (13.5-17.5); Lymphocytes # (auto) 1.3 uL; Lymphocytes % (auto) 14.1 % (10.0-50.0); Mean Corpuscular Hemoglobin 34.4 pg (28.0-32.0); Mean Corpuscular Hgb Conc. 33.8 g/dL (32.0-36.0); Mean Corpuscular Volume 101.6 fL (80.0-100.0); Mean Platelet Volume 8.2 fL (7.4-10.4); Monocytes # (auto) 0.7 uL; Monocytes % (auto) 7.8 % (0.0-12.0); Neutrophils # (auto) 7.1 uL; Neutrophils % (auto) 76.2 % (37.0-80.0); Platelet Count (auto) 329 10^3/uL (140-450); Red Cell Distribution Width 13.8 % (11.6-16.0); White Blood Cell 9.3 10^3/uL (4.4-10.8)
[2017-01-21 06:37] LABS: Albumin 2.2 g/dL (3.4-5.0); BUN/Creatinine Ratio 21.9; Bilirubin, Total 0.6 mg/dL (0.2-1.0); Calcium 7.9 mg/dL (8.5-10.1); Total Protein 7.1 g/dL (6.4-8.2)
[2017-01-21] MEDS: Boost Glucose Control 8 Ounces PO SCH ×3 (08:00→18:00)
[2017-01-21] MEDS: PRO-STAT 64 30ML PO SCH ×3 (08:00→18:00)
[2017-01-21] MEDS ORDERED: LIDOCAINE 2%HCL (LOCAL ANESTH.) INJ 20ML MDV ONE (08:03)
[2017-01-21] MEDS ORDERED: MIDAZOLAM HCL 1MG/1ML-2 ML VIAL ONE (08:18)
[2017-01-21] MEDS ORDERED: fentaNYL CITRATE 100 MCG/2 ML VL ONE (08:18)
[2017-01-21] MEDS ORDERED: NALOXONE HCL 1MG/ML 2ML SYRINGE ONE (08:20)
[2017-01-21] MEDS ORDERED: FLUMAZENIL 0.1 MG/ML INJ 10ML MDV IV ONE (08:20)
[2017-01-21 09:50] VITALS: BP 127/69
[2017-01-21] MEDS: cefTRIAXone 1GM/50ML D5W 50 ML IV SCH (09:51)
[2017-01-21] MEDS: POTASSIUM CHL 20 Meq TABLET PO SCH (09:52)
[2017-01-21] MEDS: CLOPIDOGREL BISULFATE 75 MG TAB PO SCH (09:52)
[2017-01-21] MEDS: FUROSEMIDE 40 MG TAB PO SCH (09:52)
[2017-01-21] MEDS: PANTOPRAZOLE 40 MG TAB PO SCH (09:52)
[2017-01-21] MEDS: ASPirin 81 mg TAB PO SCH (09:52)
[2017-01-21 13:00] VITALS: BP 119/71
[2017-01-21 17:44] VITALS: BP 129/70
[2017-01-21 21:50] VITALS: BP 135/69
[2017-01-22 04:39] VITALS: BP 116/68
[2017-01-22 08:00] VITALS: BP 132/80
[2017-01-22] MEDS: Boost Glucose Control 8 Ounces PO SCH ×3 (08:28→17:53)
[2017-01-22] MEDS: PRO-STAT 64 30ML PO SCH ×3 (08:28→17:53)
[2017-01-22] MEDS: cefTRIAXone 1GM/50ML D5W 50 ML IV SCH (08:44)
[2017-01-22 08:50] VITALS: BP 120/62
[2017-01-22] MEDS: FUROSEMIDE 40 MG TAB PO SCH (10:17)
[2017-01-22] MEDS: ASPirin 81 mg TAB PO SCH (10:17)
[2017-01-22] MEDS: CLOPIDOGREL BISULFATE 75 MG TAB PO SCH (10:17)
[2017-01-22] MEDS: POTASSIUM CHL 20 Meq TABLET PO SCH (10:17)
[2017-01-22] MEDS: PANTOPRAZOLE 40 MG TAB PO SCH (10:17)
[2017-01-22 13:00] VITALS: BP 120/72
[2017-01-22 16:34] VITALS: BP 129/68
[2017-01-22 21:18] VITALS: BP 120/65
[2017-01-23] VITALS (7 sets, daily range): BP systolic 120–136; BP diastolic 68–71
[2017-01-23 06:04] LABS: Basophils # (auto) 0.1 uL; Basophils % (auto) 0.7 % (0.0-2.0); CONDITION Y; Eosinophils # (auto) 0.4 uL; Eosinophils % (auto) 3.8 % (0.0-7.0); Hematocrit 34.4 % (41.0-53.0); Hemoglobin 11.7 g/dL (13.5-17.5); Lymphocytes # (auto) 1.4 uL; Lymphocytes % (auto) 13.9 % (10.0-50.0); Mean Corpuscular Hemoglobin 34.2 pg (28.0-32.0); Mean Corpuscular Hgb Conc. 33.9 g/dL (32.0-36.0); Mean Platelet Volume 8.4 fL (7.4-10.4); Monocytes # (auto) 0.8 uL; Monocytes % (auto) 8.4 % (0.0-12.0); Neutrophils # (auto) 7.2 uL; Neutrophils % (auto) 73.2 % (37.0-80.0); Platelet Count (auto) 350 10^3/uL (140-450); White Blood Cell 9.9 10^3/uL (4.4-10.8)
[2017-01-23 06:36] LABS: Albumin 2.2 g/dL (3.4-5.0); BUN/Creatinine Ratio 22.6; Bilirubin, Total 0.6 mg/dL (0.2-1.0); Magnesium 2.4 mg/dL (1.6-2.6); Phosphorus 2.4 mg/dL (2.5-4.90); Potassium 3.9 mmol/L (3.5-5.1); Total Protein 7.2 g/dL (6.4-8.2)
[2017-01-23] MEDS: PRO-STAT 64 30ML PO SCH ×3 (07:46→17:10)
[2017-01-23] MEDS: Boost Glucose Control 8 Ounces PO SCH ×3 (07:46→17:10)
[2017-01-23] MEDS: cefTRIAXone 1GM/50ML D5W 50 ML IV SCH (08:14)
[2017-01-23] MEDS: PANTOPRAZOLE 40 MG TAB PO SCH (09:54)
[2017-01-23] MEDS: FUROSEMIDE 40 MG TAB PO SCH (09:54)
[2017-01-23] MEDS: CLOPIDOGREL BISULFATE 75 MG TAB PO SCH (09:54)
[2017-01-23] MEDS: ASPirin 81 mg TAB PO SCH (09:54)
[2017-01-23] MEDS: POTASSIUM CHL 20 Meq TABLET PO SCH (09:54)
[2017-01-24] VITALS (7 sets, daily range): BP systolic 101–118; BP diastolic 50–74
[2017-01-24] MEDS: PRO-STAT 64 30ML PO SCH ×3 (07:23→17:06)
[2017-01-24] MEDS: Boost Glucose Control 8 Ounces PO SCH ×3 (07:23→17:06)
[2017-01-24] MEDS: cefTRIAXone 1GM/50ML D5W 50 ML IV SCH (08:17)
[2017-01-24] MEDS: ASPirin 81 mg TAB PO SCH (09:52)
[2017-01-24] MEDS: CLOPIDOGREL BISULFATE 75 MG TAB PO SCH (09:52)
[2017-01-24] MEDS: FUROSEMIDE 40 MG TAB PO SCH (09:52)
[2017-01-24] MEDS: PANTOPRAZOLE 40 MG TAB PO SCH (09:53)
[2017-01-24] MEDS: POTASSIUM CHL 20 Meq TABLET PO SCH (09:53)
[2017-01-24] MEDS ORDERED: MORPHINE SULF INJ 2 MG/ML SYRINGE 1ML IV PRN ×2 (12:30)
[2017-01-24] MEDS ORDERED: LACTULOSE 20Gm/30ML SOLN PO PRN (12:30)
[2017-01-24] MEDS ORDERED: HYDROcodone-ACET 5/325MG TAB PO PRN (12:30)
[2017-01-24] MEDS ORDERED: PROMETHAZINE HCL 25 MG/ML 1ML IV PRN (12:30)
[2017-01-24] MEDS ORDERED: NITROGLYCERIN 0.4 MG SL TAB SL PRN (12:30)
[2017-01-25] VITALS (7 sets, daily range): BP systolic 105–125; BP diastolic 66–68
[2017-01-25] MEDS: Boost Glucose Control 8 Ounces PO SCH ×3 (08:00→18:28)
[2017-01-25] MEDS: PRO-STAT 64 30ML PO SCH ×3 (08:00→18:28)
[2017-01-25] MEDS: cefTRIAXone 1GM/50ML D5W 50 ML IV SCH (09:10)
[2017-01-25] MEDS: FUROSEMIDE 40 MG TAB PO SCH (10:07)
[2017-01-25] MEDS: PANTOPRAZOLE 40 MG TAB PO SCH (10:07)
[2017-01-25] MEDS: CLOPIDOGREL BISULFATE 75 MG TAB PO SCH (10:07)
[2017-01-25] MEDS: POTASSIUM CHL 20 Meq TABLET PO SCH (10:07)
[2017-01-25] MEDS: ASPirin 81 mg TAB PO SCH (10:07)
[2017-01-25] MEDS: methylPREDNISolone SOD SUCC 40 MG/ML VL IV SCH ×2 (14:38→22:05)
[2017-01-25] MEDS: SALINE 0.65 % NASAL SPRAY 45ML BOTTLE EACHNOSTRI SCH ×2 (18:00→22:00)
[2017-01-26] VITALS (7 sets, daily range): BP systolic 120–127; BP diastolic 59–78
[2017-01-26] MEDS: SALINE 0.65 % NASAL SPRAY 45ML BOTTLE EACHNOSTRI SCH ×4 (05:48→22:21)
[2017-01-26] MEDS: methylPREDNISolone SOD SUCC 40 MG/ML VL IV SCH ×3 (05:49→22:21)
[2017-01-26] MEDS: cefTRIAXone 1GM/50ML D5W 50 ML IV SCH (09:12)
[2017-01-26] MEDS: PANTOPRAZOLE 40 MG TAB PO SCH (09:31)
[2017-01-26] MEDS: POTASSIUM CHL 20 Meq TABLET PO SCH (09:31)
[2017-01-26] MEDS: CLOPIDOGREL BISULFATE 75 MG TAB PO SCH (09:31)
[2017-01-26] MEDS: ASPirin 81 mg TAB PO SCH (09:31)
[2017-01-26] MEDS: FUROSEMIDE 40 MG TAB PO SCH (09:33)
[2017-01-26] MEDS: PRO-STAT 64 30ML PO SCH ×3 (09:35→17:38)
[2017-01-26] MEDS: Boost Glucose Control 8 Ounces PO SCH ×3 (09:35→17:38)
[2017-01-26] MEDS ORDERED: MORPHINE SULFATE 4 MG/ML SYRG IV PRN ×2 (14:29→14:30)
[2017-01-27 05:40] VITALS: BP 143/78
[2017-01-27] MEDS: methylPREDNISolone SOD SUCC 40 MG/ML VL IV SCH ×2 (05:50→21:53)
[2017-01-27] MEDS: SALINE 0.65 % NASAL SPRAY 45ML BOTTLE EACHNOSTRI SCH ×4 (05:50→21:53)
[2017-01-27 06:03] LABS: Basophils # (auto) 0 uL; CONDITION Y; DEFINITIVE SEE PRINTOUT; Eosinophils # (auto) 0 uL; Hematocrit 34.2 % (41.0-53.0); Hemoglobin 11.4 g/dL (13.5-17.5); Lymphocytes # (auto) 0.7 uL; Lymphocytes % (auto) 4.9 % (10.0-50.0); Mean Corpuscular Hemoglobin 33.8 pg (28.0-32.0); Mean Corpuscular Hgb Conc. 33.2 g/dL (32.0-36.0); Mean Corpuscular Volume 101.7 fL (80.0-100.0); Mean Platelet Volume 8.7 fL (7.4-10.4); Monocytes # (auto) 0.4 uL; Monocytes % (auto) 2.9 % (0.0-12.0); Neutrophils # (auto) 13.8 uL; Neutrophils % (auto) 92.2 % (37.0-80.0); Platelet Count (auto) 395 10^3/uL (140-450); Red Cell Distribution Width 13.3 % (11.6-16.0); White Blood Cell 14.9 10^3/uL (4.4-10.8)
[2017-01-27 06:16] LABS: Potassium 4.5 mmol/L (3.5-5.1)
[2017-01-27 06:25] LABS: Albumin 2.3 g/dL (3.4-5.0); BUN/Creatinine Ratio 35.2; Calcium 8.1 mg/dL (8.5-10.1)
[2017-01-27 06:27] LABS: Bilirubin, Total 0.4 mg/dL (0.2-1.0); Total Protein 7.3 g/dL (6.4-8.2)
[2017-01-27 11:00] VITALS: BP 129/73
[2017-01-27] MEDS ORDERED: PANTOPRAZOLE 40 MG TAB PO ONE (11:00)
[2017-01-27] MEDS ORDERED: POTASSIUM CHL 20 Meq TABLET PO ONE (11:00)
[2017-01-27] MEDS ORDERED: cefTRIAXone 1GM/50ML D5W 50 ML IV ONE (11:00)
[2017-01-27] MEDS: Boost Glucose Control 8 Ounces PO SCH ×3 (11:08→18:23)
[2017-01-27] MEDS: PRO-STAT 64 30ML PO SCH ×3 (11:08→18:23)
[2017-01-27] MEDS: CLOPIDOGREL BISULFATE 75 MG TAB PO SCH (11:09)
[2017-01-27] MEDS: ASPirin 81 mg TAB PO SCH (11:09)
[2017-01-27 17:08] VITALS: BP 110/64
[2017-01-27 22:00] VITALS: BP 126/73
[2017-01-28] VITALS (8 sets, daily range): BP systolic 111–149; BP diastolic 59–80
[2017-01-28] MEDS: SALINE 0.65 % NASAL SPRAY 45ML BOTTLE EACHNOSTRI SCH ×4 (06:01→21:39)
[2017-01-28] MEDS: Boost Glucose Control 8 Ounces PO SCH ×3 (08:01→18:12)
[2017-01-28] MEDS: PRO-STAT 64 30ML PO SCH ×3 (08:01→18:12)
[2017-01-28] MEDS: cefTRIAXone 1GM/50ML D5W 50 ML IV SCH (09:04)
[2017-01-28] MEDS: POTASSIUM CHL 20 Meq TABLET PO SCH (09:05)
[2017-01-28] MEDS: PANTOPRAZOLE 40 MG TAB PO SCH (09:05)
[2017-01-28] MEDS: ASPirin 81 mg TAB PO SCH (09:05)
[2017-01-28] MEDS: methylPREDNISolone SOD SUCC 40 MG/ML VL IV SCH (09:05)
[2017-01-28] MEDS: CLOPIDOGREL BISULFATE 75 MG TAB PO SCH (09:05)
[2017-01-28] MEDS: FUROSEMIDE 40 MG TAB PO SCH (09:06)
[2017-01-28 09:17] LABS: Allen Test Yes; Base Excess -2.8 mmol/L (-2.0-2.0); Blood 02Sat 94.5 % (96-100); Blood COHb 0.3 % (0.5-1.5); Blood MetHb 0.2 % (0.0-1.5); HCO3 19.6 mmol/L (22-26.0); HHb 5.5 % (0.0-5.0); MODE OXYMIZER; PCO2 27.4 mmHg (35.0-45.0); PCO2(T) 27.4 mmHg (35.0-45.0); PO2 77.9 mmHg (80.0-100.0); PO2(T) 77.9 mmHg (80.0-100.0); Sample Type Arterial; pH 7.473 (7.350-7.450)
[2017-01-29 05:00] VITALS: BP 127/80
[2017-01-29] MEDS: SALINE 0.65 % NASAL SPRAY 45ML BOTTLE EACHNOSTRI SCH ×4 (05:32→21:43)
[2017-01-29] MEDS: PRO-STAT 64 30ML PO SCH ×2 (08:00→18:00)
[2017-01-29] MEDS: Boost Glucose Control 8 Ounces PO SCH ×2 (08:00→18:00)
[2017-01-29 09:00] VITALS: BP 139/92
[2017-01-29] MEDS: cefTRIAXone 1GM/50ML D5W 50 ML IV SCH (10:18)
[2017-01-29] MEDS: POTASSIUM CHL 20 Meq TABLET PO SCH (10:18)
[2017-01-29] MEDS: predniSONE 20 MG TAB PO SCH (10:19)
[2017-01-29] MEDS: FUROSEMIDE 40 MG TAB PO SCH (10:19)
[2017-01-29] MEDS: CLOPIDOGREL BISULFATE 75 MG TAB PO SCH (10:19)
[2017-01-29] MEDS: PANTOPRAZOLE 40 MG TAB PO SCH (10:19)
[2017-01-29] MEDS: ASPirin 81 mg TAB PO SCH (10:20)
[2017-01-29 13:06] VITALS: BP 124/74
[2017-01-29 16:26] VITALS: BP 118/76
[2017-01-29 20:00] VITALS: BP 128/75
[2017-01-29 22:00] VITALS: BP 128/75
[2017-01-30 05:00] VITALS: BP 124/69
[2017-01-30 06:40] LABS: Basophils # (auto) 0 uL; Basophils % (auto) 0.3 % (0.0-2.0); CONDITION Y; Eosinophils # (auto) 0.1 uL; Eosinophils % (auto) 0.4 % (0.0-7.0); Hematocrit 37.3 % (41.0-53.0); Hemoglobin 12.9 g/dL (13.5-17.5); Lymphocytes % (auto) 14.5 % (10.0-50.0); Mean Corpuscular Hemoglobin 34.3 pg (28.0-32.0); Mean Corpuscular Hgb Conc. 34.4 g/dL (32.0-36.0); Mean Corpuscular Volume 99.6 fL (80.0-100.0); Mean Platelet Volume 8.2 fL (7.4-10.4); Monocytes # (auto) 1.2 uL; Monocytes % (auto) 8.6 % (0.0-12.0); Neutrophils # (auto) 10.3 uL; Neutrophils % (auto) 76.2 % (37.0-80.0); Platelet Count (auto) 377 10^3/uL (140-450); Red Cell Distribution Width 13.2 % (11.6-16.0); White Blood Cell 13.6 10^3/uL (4.4-10.8)
[2017-01-30] MEDS: SALINE 0.65 % NASAL SPRAY 45ML BOTTLE EACHNOSTRI SCH ×4 (06:53→22:26)
[2017-01-30 06:56] LABS: Albumin 2.5 g/dL (3.4-5.0); Calcium 8.1 mg/dL (8.5-10.1); Potassium 4.2 mmol/L (3.5-5.1)
[2017-01-30 06:59] LABS: BUN/Creatinine Ratio 24.2
[2017-01-30 07:01] LABS: Bilirubin, Total 0.6 mg/dL (0.2-1.0); Total Protein 7.2 g/dL (6.4-8.2)
[2017-01-30] MEDS: PRO-STAT 64 30ML PO SCH ×3 (08:00→17:52)
[2017-01-30] MEDS: Boost Glucose Control 8 Ounces PO SCH ×3 (08:00→17:52)
[2017-01-30 09:00] VITALS: BP 134/85
[2017-01-30] MEDS: cefTRIAXone 1GM/50ML D5W 50 ML IV SCH (09:17)
[2017-01-30] MEDS: ASPirin 81 mg TAB PO SCH (10:03)
[2017-01-30] MEDS: PANTOPRAZOLE 40 MG TAB PO SCH (10:03)
[2017-01-30] MEDS: CLOPIDOGREL BISULFATE 75 MG TAB PO SCH (10:03)
[2017-01-30] MEDS: predniSONE 20 MG TAB PO SCH (10:03)
[2017-01-30] MEDS: POTASSIUM CHL 20 Meq TABLET PO SCH (10:04)
[2017-01-30] MEDS: FUROSEMIDE 40 MG TAB PO SCH (10:04)
[2017-01-30 17:00] VITALS: BP 140/75
[2017-01-30 20:00] VITALS: BP 118/80
[2017-01-30 22:00] VITALS: BP 118/80
[2017-01-31 05:00] VITALS: BP 130/81
[2017-01-31] MEDS: SALINE 0.65 % NASAL SPRAY 45ML BOTTLE EACHNOSTRI SCH ×4 (05:57→22:00)
[2017-01-31] MEDS: Boost Glucose Control 8 Ounces PO SCH ×3 (08:05→11:32)
[2017-01-31] MEDS: PRO-STAT 64 30ML PO SCH ×3 (08:05→11:32)
[2017-01-31 09:00] VITALS: BP 131/77
[2017-01-31] MEDS: cefTRIAXone 1GM/50ML D5W 50 ML IV SCH (09:20)
[2017-01-31] MEDS ORDERED: HYDROcodone-ACET 5/325MG TAB PO PRN (10:30)
[2017-01-31] MEDS: ASPirin 81 mg TAB PO SCH (10:41)
[2017-01-31] MEDS: POTASSIUM CHL 20 Meq TABLET PO SCH (10:41)
[2017-01-31] MEDS: PANTOPRAZOLE 40 MG TAB PO SCH (10:41)
[2017-01-31] MEDS: CLOPIDOGREL BISULFATE 75 MG TAB PO SCH (10:42)
[2017-01-31] MEDS: predniSONE 20 MG TAB PO SCH (10:42)
[2017-01-31] MEDS: FUROSEMIDE 40 MG TAB PO SCH (10:42)
[2017-01-31 12:50] VITALS: BP 133/79
[2017-01-31 17:00] VITALS: BP 129/88
[2017-01-31 22:00] VITALS: BP 134/75
[2017-02-01] VITALS (10 sets, daily range): BP systolic 104–136; BP diastolic 65–87
[2017-02-01] MEDS: SALINE 0.65 % NASAL SPRAY 45ML BOTTLE EACHNOSTRI SCH ×4 (06:00→22:08)
[2017-02-01 06:56] LABS: CONDITION Y; Hemoglobin 13.3 g/dL (13.5-17.5); SUSPECT SEE PRINTOUT
[2017-02-01 07:02] LABS: Mean Corpuscular Hemoglobin 34.5 pg (28.0-32.0); Mean Corpuscular Hgb Conc. 34.1 g/dL (32.0-36.0); Mean Corpuscular Volume 101.1 fL (80.0-100.0); Mean Platelet Volume 8.3 fL (7.4-10.4); Platelet Count (auto) 357 10^3/uL (140-450); Red Cell Distribution Width 13.7 % (11.6-16.0); White Blood Cell 21.4 10^3/uL (4.4-10.8)
[2017-02-01 07:07] LABS: Myelocytes % 0; Promyelocytes % 0; Reactive Lymphocytes 0
[2017-02-01 07:21] LABS: Metamyelocytes % 1; Platelet Estimate Adequate; RBC Morphology Normal
[2017-02-01] MEDS: cefTRIAXone 1GM/50ML D5W 50 ML IV SCH (10:16)
[2017-02-01] MEDS: CLOPIDOGREL BISULFATE 75 MG TAB PO SCH (10:17)
[2017-02-01] MEDS: ASPirin 81 mg TAB PO SCH (10:17)
[2017-02-01] MEDS: POTASSIUM CHL 20 Meq TABLET PO SCH (10:17)
[2017-02-01] MEDS: predniSONE 20 MG TAB PO SCH (10:17)
[2017-02-01] MEDS: PANTOPRAZOLE 40 MG TAB PO SCH (10:17)
[2017-02-01] MEDS: Boost Glucose Control 8 Ounces PO SCH ×3 (10:18→18:00)
[2017-02-01] MEDS: FUROSEMIDE 40 MG TAB PO SCH (10:18)
[2017-02-01] MEDS: PRO-STAT 64 30ML PO SCH ×3 (10:18→18:00)
[2017-02-01] MEDS ORDERED: ACETAMINOPHEN 650 MG RECT SUPP PR PRN (14:00)
[2017-02-01 14:01] LABS: INR 1.16 (0.9-1.15)
[2017-02-01 14:06] LABS: Prothrombin Time 12.7 sec (9.37-12.3)
[2017-02-01] MEDS: SODIUM CHLORIDE 0.9% 1,000 ML IV SCH (14:13)
[2017-02-01] MEDS ORDERED: LABETALOL INJECTION 250 MG in SODIUM CHL 0.9% 200 ML IV ONE (14:30)
[2017-02-01] MEDS ORDERED: LABETALOL HCL 5 MG/ML 4ML SYRINGE IV PRN (14:30)
[2017-02-01 14:43] LABS: CONDITION Y; Hematocrit 42.5 % (41.0-53.0); Hemoglobin 14.3 g/dL (13.5-17.5); Mean Corpuscular Hemoglobin 33.9 pg (28.0-32.0); Mean Corpuscular Hgb Conc. 33.6 g/dL (32.0-36.0); Mean Corpuscular Volume 100.9 fL (80.0-100.0); Mean Platelet Volume 8.1 fL (7.4-10.4); Platelet Count (auto) 380 10^3/uL (140-450); Red Cell Distribution Width 13.6 % (11.6-16.0); SUSPECT SEE PRINTOUT; White Blood Cell 24.2 10^3/uL (4.4-10.8)
[2017-02-01] MEDS ORDERED: ALTEPLASE (RECOMBINANT) 100 MG in STERILE WATER 100 ML IV ONE (14:45)
[2017-02-01 15:06] LABS: Albumin 2.8 g/dL (3.4-5.0); BUN/Creatinine Ratio 24.3; Bilirubin, Total 0.6 mg/dL (0.2-1.0); Potassium 4.1 mmol/L (3.5-5.1); Total Protein 7.2 g/dL (6.4-8.2)
[2017-02-01 15:15] LABS: Metamyelocytes % 0; Myelocytes % 0; Promyelocytes % 0; Reactive Lymphocytes 0
[2017-02-01 15:35] LABS: Platelet Estimate Adequate; RBC Morphology Normal
[2017-02-02] VITALS (12 sets, daily range): BP systolic 109–146; BP diastolic 61–84
[2017-02-02 03:47] LABS: Basophils # (auto) 0 uL; Basophils % (auto) 0.1 % (0.0-2.0); CONDITION Y; Eosinophils # (auto) 0 uL; Eosinophils % (auto) 0.1 % (0.0-7.0); Hematocrit 38.9 % (41.0-53.0); Hemoglobin 13.1 g/dL (13.5-17.5); Lymphocytes % (auto) 9.2 % (10.0-50.0); Mean Corpuscular Hgb Conc. 33.6 g/dL (32.0-36.0); Mean Corpuscular Volume 100.9 fL (80.0-100.0); Mean Platelet Volume 8.1 fL (7.4-10.4); Monocytes # (auto) 1.4 uL; Monocytes % (auto) 6.4 % (0.0-12.0); Neutrophils # (auto) 18.1 uL; Neutrophils % (auto) 84.2 % (37.0-80.0); Platelet Count (auto) 337 10^3/uL (140-450); Red Cell Distribution Width 13.7 % (11.6-16.0); White Blood Cell 21.5 10^3/uL (4.4-10.8)
[2017-02-02] MEDS: SALINE 0.65 % NASAL SPRAY 45ML BOTTLE EACHNOSTRI SCH ×4 (07:00→22:04)
[2017-02-02] MEDS: PRO-STAT 64 30ML PO SCH ×3 (08:54→18:00)
[2017-02-02] MEDS: Boost Glucose Control 8 Ounces PO SCH ×3 (08:54→18:11)
[2017-02-02] MEDS: cefTRIAXone 1GM/50ML D5W 50 ML IV SCH (09:00)
[2017-02-02] MEDS: SODIUM CHLORIDE 0.9% 1,000 ML IV SCH (09:31)
[2017-02-02] MEDS: predniSONE 20 MG TAB PO SCH (09:54)
[2017-02-02] MEDS: PANTOPRAZOLE 40 MG TAB PO SCH (09:55)
[2017-02-02] MEDS: FUROSEMIDE 40 MG TAB PO SCH (09:55)
[2017-02-02] MEDS: POTASSIUM CHL 20 Meq TABLET PO SCH (09:55)
[2017-02-02] MEDS: CLOPIDOGREL BISULFATE 75 MG TAB PO SCH (22:02)
[2017-02-02] MEDS: ATORVASTATIN 20 MG TAB PO SCH (22:03)
[2017-02-03 05:18] VITALS: BP 119/81
[2017-02-03] MEDS: SALINE 0.65 % NASAL SPRAY 45ML BOTTLE EACHNOSTRI SCH ×4 (05:45→22:31)
[2017-02-03 06:04] LABS: CONDITION Y; Hematocrit 39.8 % (41.0-53.0); Hemoglobin 13.4 g/dL (13.5-17.5); Mean Corpuscular Hgb Conc. 33.8 g/dL (32.0-36.0); Mean Corpuscular Volume 100.7 fL (80.0-100.0); Mean Platelet Volume 8.5 fL (7.4-10.4); Platelet Count (auto) 288 10^3/uL (140-450); Red Cell Distribution Width 13.7 % (11.6-16.0); SUSPECT SEE PRINTOUT; White Blood Cell 20.6 10^3/uL (4.4-10.8)
[2017-02-03 06:17] LABS: Metamyelocytes % 0; Promyelocytes % 0; Reactive Lymphocytes 0
[2017-02-03 06:45] LABS: Calcium 8.5 mg/dL (8.5-10.1); Potassium 3.9 mmol/L (3.5-5.1)
[2017-02-03 06:47] LABS: BUN/Creatinine Ratio 28.4
[2017-02-03 06:55] LABS: Hypersegmented Neutrophils Present; Macrocytosis Slight; Myelocytes % 1; Platelet Estimate Adequate
[2017-02-03 06:56] LABS: Anisocytosis Slight
[2017-02-03] MEDS: PRO-STAT 64 30ML PO SCH ×3 (08:00→17:54)
[2017-02-03] MEDS: cefTRIAXone 1GM/50ML D5W 50 ML IV SCH (08:53)
[2017-02-03] MEDS: Boost Glucose Control 8 Ounces PO SCH ×3 (08:54→17:54)
[2017-02-03 09:00] VITALS: BP 125/60
[2017-02-03] MEDS: CLOPIDOGREL BISULFATE 75 MG TAB PO SCH (10:07)
[2017-02-03] MEDS: PANTOPRAZOLE 40 MG TAB PO SCH (10:07)
[2017-02-03] MEDS: ASPirin 81 mg TAB PO SCH (10:08)
[2017-02-03] MEDS: POTASSIUM CHL 20 Meq TABLET PO SCH (10:08)
[2017-02-03] MEDS: predniSONE 20 MG TAB PO SCH (10:08)
[2017-02-03] MEDS: FUROSEMIDE 40 MG TAB PO SCH (10:08)
[2017-02-03 15:21] VITALS: BP 122/70
[2017-02-03 21:30] VITALS: BP 124/75
[2017-02-03] MEDS: ATORVASTATIN 20 MG TAB PO SCH (22:31)
[2017-02-04 05:00] VITALS: BP 114/88
[2017-02-04 05:54] LABS: CONDITION Y; Hematocrit 39.9 % (41.0-53.0); Hemoglobin 13.4 g/dL (13.5-17.5); Mean Corpuscular Hemoglobin 34.1 pg (28.0-32.0); Mean Corpuscular Hgb Conc. 33.6 g/dL (32.0-36.0); Mean Corpuscular Volume 101.5 fL (80.0-100.0); Mean Platelet Volume 8.2 fL (7.4-10.4); Platelet Count (auto) 277 10^3/uL (140-450); Red Cell Distribution Width 14.3 % (11.6-16.0); SUSPECT SEE PRINTOUT; White Blood Cell 20.5 10^3/uL (4.4-10.8)
[2017-02-04] MEDS: SALINE 0.65 % NASAL SPRAY 45ML BOTTLE EACHNOSTRI SCH ×2 (06:16→12:00)
[2017-02-04 06:20] LABS: Metamyelocytes % 0; Promyelocytes % 0; Reactive Lymphocytes 0
[2017-02-04 07:16] LABS: Anisocytosis Slight; Hypersegmented Neutrophils Present; Myelocytes % 1; Platelet Estimate Adequate; Poikilocytosis Slight
[2017-02-04] MEDS: Boost Glucose Control 8 Ounces PO SCH ×2 (08:00→12:00)
[2017-02-04] MEDS: PRO-STAT 64 30ML PO SCH ×2 (08:00→12:00)
[2017-02-04 09:00] VITALS: BP 112/74
[2017-02-04 09:24] LABS: Allen Test Yes; Base Excess -4.6 mmol/L (-2.0-2.0); Blood COHb 0.8 % (0.5-1.5); Blood MetHb 0.2 % (0.0-1.5); HCO3 16.7 mmol/L (22-26.0); HHb 5.9 % (0.0-5.0); MODE ROOM AIR; O2Hb 93.1 % (94.0-97.0); PCO2 22.9 mmHg (35.0-45.0); PCO2(T) 22.9 mmHg (35.0-45.0); PO2 74.1 mmHg (80.0-100.0); PO2(T) 74.1 mmHg (80.0-100.0); Sample Type Arterial
[2017-02-04] MEDS ORDERED: predniSONE 20 MG TAB PO SCH (10:00)
[2017-02-04] MEDS: PANTOPRAZOLE 40 MG TAB PO SCH (10:08)
[2017-02-04] MEDS: CLOPIDOGREL BISULFATE 75 MG TAB PO SCH (10:08)
[2017-02-04] MEDS: cefTRIAXone 1GM/50ML D5W 50 ML IV SCH (10:08)
[2017-02-04] MEDS: POTASSIUM CHL 20 Meq TABLET PO SCH (10:08)
[2017-02-04] MEDS: FUROSEMIDE 40 MG TAB PO SCH (10:09)
[2017-02-04] MEDS: ASPirin 81 mg TAB PO SCH (10:09)
[2017-02-04 13:00] VITALS: BP 144/71
[2017-02-04 15:54] VITALS: BP 130/66
[2017-02-04 16:04] VITALS: BP 130/66
== END 2017-02-04 17:30 | disposition home or self-care (01) | DRG 871 ==
LOC: ER 15:31 → TELE 15:32 → DOU IN ICU 20:25 → ICU WEST 01-09 16:35 → DOU IN ICU 01-16 15:14 → TELE-EAST 01-16 15:14 → EAST 01-27 17:43 → TELE-EAST 02-01 13:43 → ICU CENTRL 02-01 14:35 → DOU IN ICU 02-01 14:37 → ICU WEST 02-01 15:50 → TELE-WESTW 02-02 12:15 → WEST WING 02-03 17:16
PROVIDERS: ADMIT Internal Medicine; ATTEND Internal Medicine
PROC: 5A1945Z Respiratory Ventilation, 24-96 Consecutive Hours (ICD-10-PCS; 2017-01-07)
PROC: 3E03317 Introduction of Other Thrombolytic into Peripheral Vein, Percutaneous Approach (ICD-10-PCS; 2017-01-07)
PROC: 0BH17EZ Insertion of Endotracheal Airway into Trachea, Via Natural or Artificial Opening (ICD-10-PCS; 2017-01-07)
PROC: 5A09557 Assistance with Respiratory Ventilation, Greater than 96 Consecutive Hours, Continuous Positive Airway Pressure (ICD-10-PCS; 2017-01-07)
PROC: 02HV33Z Insertion of Infusion Device into Superior Vena Cava, Percutaneous Approach (ICD-10-PCS; 2017-01-07)
PROC: 0F903ZZ Drainage of Liver, Percutaneous Approach (ICD-10-PCS; principal; 2017-01-10)
DX: A41.9 Sepsis, unspecified organism (principal); J96.01 Acute respiratory failure with hypoxia; I50.43 Acute on chronic combined systolic (congestive) and diastolic (congestive) heart failure; I61.9 Nontraumatic intracerebral hemorrhage, unspecified; K75.0 Abscess of liver; N17.0 Acute kidney failure with tubular necrosis; R65.21 Severe sepsis with septic shock; J15.6 Pneumonia due to other Gram-negative bacteria; I63.9 Cerebral infarction, unspecified; E44.0 Moderate protein-calorie malnutrition; G81.91 Hemiplegia, unspecified affecting right dominant side; R47.01 Aphasia; J44.1 Chronic obstructive pulmonary disease with (acute) exacerbation; J44.0 Chronic obstructive pulmonary disease with (acute) lower respiratory infection; E78.5 Hyperlipidemia, unspecified; D72.825 Bandemia; I11.0 Hypertensive heart disease with heart failure; I25.10 Atherosclerotic heart disease of native coronary artery without angina pectoris; I25.2 Old myocardial infarction; I35.1 Nonrheumatic aortic (valve) insufficiency; K76.89 Other specified diseases of liver; Z95.5 Presence of coronary angioplasty implant and graft; Z68.28 Body mass index [BMI] 28.0-28.9, adult; H53.461 Homonymous bilateral field defects, right side; K76.81 Hepatopulmonary syndrome; M25.512 Pain in left shoulder; Z79.82 Long term (current) use of aspirin; Z71.89 Other specified counseling; R16.0 Hepatomegaly, not elsewhere classified; K59.00 Constipation, unspecified; R47.1 Dysarthria and anarthria
CPT/HCPCS: 10022; 36415; 36600; 51702; 70450; 70551; 71010; 71020; 71250; 71275; 73030; 74176; 74177; 75989; 76705; 76942; 78582; 80048; 80053; 80061; 80202; 81001; 82105; 82140; 82150; 82378; 82550; 82805; 82962; 83036; 83605; 83690; 83735; 83880; 84100; 84484; 85007; 85025; 85027; 85610; 85652; 85730; 86141; 86704; 86706; 86708; 86803; 87040; 87070; 87077; 87081; 87086; 87186; 87205; 87340; 92610; 93005; 93306; 93886; 94002; 94003; 94640; 94660; 96374; 96375; 97110; 97116; 97163; 97530; 99291; C1729; C9113; J0690; J0696; J1815; J2250; J2543; J2704; J3490; J7060

== ENCOUNTER → 2017-02-11 | Outpatient (CLI) | payer OTHER ==
[~2017-02-11] MED LIST changes: -ATEN-60 OR
[2017-02-11 09:16] LABS: Basophils # (auto) 0.1 uL; Basophils % (auto) 0.5 % (0.0-2.0); CONDITION Y; DEFINITIVE SEE PRINTOUT; Eosinophils # (auto) 0.1 uL; Eosinophils % (auto) 0.5 % (0.0-7.0); Hematocrit 36.8 % (41.0-53.0); Hemoglobin 12.3 g/dL (13.5-17.5); Lymphocytes # (auto) 2.8 uL; Lymphocytes % (auto) 17.1 % (10.0-50.0); Mean Corpuscular Hemoglobin 34.3 pg (28.0-32.0); Mean Corpuscular Hgb Conc. 33.4 g/dL (32.0-36.0); Mean Corpuscular Volume 102.7 fL (80.0-100.0); Mean Platelet Volume 8.5 fL (7.4-10.4); Monocytes # (auto) 0.9 uL; Monocytes % (auto) 5.3 % (0.0-12.0); Neutrophils # (auto) 12.5 uL; Neutrophils % (auto) 76.6 % (37.0-80.0); Platelet Count (auto) 180 10^3/uL (140-450); Red Cell Distribution Width 15.3 % (11.6-16.0); White Blood Cell 16.3 10^3/uL (4.4-10.8)
== END | disposition home or self-care (01) ==
LOC: LAB 08:49
PROVIDERS: ATTEND Internal Medicine
DX: Z00.00 Encounter for general adult medical examination without abnormal findings (principal)
CPT/HCPCS: 36415; 85025

== ENCOUNTER → 2017-03-03 | Outpatient (CLI) | payer OTHER ==
[~2017-03-03] VITALS: Ht 167.6 cm; Wt 80.7 kg
[~2017-03-03] MED LIST changes: +ADENOSINE 68 MG in GIVE UN-DILUTED 0 ML IV ONE; +AMINOPHYLLINE 250 MG/10 ML VL IV ONE
== END | disposition home or self-care (01) ==
LOC: XY 08:17
PROVIDERS: ATTEND Internal Medicine Cardiovascular Disease
DX: I20.9 Angina pectoris, unspecified (principal)
CPT/HCPCS: 78452; 93017; A9500; J0153; J0280

== ENCOUNTER → 2017-04-05 | Outpatient (CLI) | payer OTHER ==
[~2017-04-05] MED LIST changes: -ADENOSINE 68 MG in GIVE UN-DILUTED 0 ML IV ONE; -AMINOPHYLLINE 250 MG/10 ML VL IV ONE
== END | disposition home or self-care (01) ==
LOC: LAB 09:52
PROVIDERS: ATTEND Family Medicine
DX: Z01.812 Encounter for preprocedural laboratory examination (principal); I63.9 Cerebral infarction, unspecified; G46.4 Cerebellar stroke syndrome
CPT/HCPCS: 36415; 82565; 84520

== ENCOUNTER → 2017-04-21 | Outpatient (CLI) | payer OTHER ==
[2017-04-21 10:21] LABS: Basophils # (auto) 0 uL; Eosinophils # (auto) 0.2 uL; Eosinophils % (auto) 3.2 % (0.0-7.0); Hematocrit 38.3 % (41.0-53.0); Lymphocytes # (auto) 1.1 uL; Lymphocytes % (auto) 23.1 % (10.0-50.0); Mean Corpuscular Hemoglobin 34.5 pg (28.0-32.0); Mean Corpuscular Volume 101.4 fL (80.0-100.0); Monocytes # (auto) 0.5 uL; Monocytes % (auto) 11.1 % (0.0-12.0); Neutrophils % (auto) 61.6 % (37.0-80.0); Nucleated Red Blood Cells % 0.1 %; Platelet Count (auto) 162 10^3/uL (140-450); Red Cell Distribution Width 14.6 % (11.8-14.3); White Blood Cell 4.9 10^3/uL (4.4-10.8)
[2017-04-21 10:31] LABS: Urine Bilirubin Negative (Negative); Urine Blood Negative /uL (Negative); Urine Color Yellow (Yellow); Urine Glucose Normal (Normal); Urine Ketone Negative (Negative); Urine Mucus FEW (None Seen); Urine Nitrite Negative (Negative); Urine RBC <1 /hpf (0 - 3); Urine Urobilinogen Normal (Negative)
[2017-04-21 10:58] LABS: Albumin 3.7 g/dL (3.4-5.0); BUN/Creatinine Ratio 10.5; Bilirubin, Total 0.6 mg/dL (0.2-1.0); Potassium 4.4 mmol/L (3.5-5.1); Total Protein 7.3 g/dL (6.4-8.2)
== END | disposition home or self-care (01) ==
LOC: LAB 10:03
PROVIDERS: ATTEND Family Medicine
DX: E78.4 Other hyperlipidemia (principal); I63.8 Other cerebral infarction; Z95.5 Presence of coronary angioplasty implant and graft
CPT/HCPCS: 36415; 80053; 80061; 81001; 82607; 85025

== ENCOUNTER → 2017-11-22 | Outpatient (CLI) | payer OTHER ==
[~2017-11-22] MED LIST changes: +NIAC100T3 OR; -[UNRECOGNIZED DRUG - CODE] OR
[2017-11-22 09:44] LABS: Basophils # (auto) 0 uL; Basophils % (auto) 0.7 % (0.0-2.0); Eosinophils # (auto) 0.1 uL; Eosinophils % (auto) 2.1 % (0.0-7.0); Hemoglobin 14.4 g/dL (13.5-17.5); Lymphocytes # (auto) 1.5 uL; Mean Corpuscular Hemoglobin 34.6 pg (28.0-32.0); Mean Corpuscular Hgb Conc. 33.5 g/dL (32.0-36.0); Mean Corpuscular Volume 103.5 fL (80.0-100.0); Monocytes # (auto) 0.4 uL; Monocytes % (auto) 8.3 % (0.0-12.0); Neutrophils % (auto) 59.9 % (37.0-80.0); Nucleated Red Blood Cells % 0.1 %; Platelet Count (auto) 141 10^3/uL (140-450); Red Blood Cells 4.15 10^6/uL (4.5-5.90); Red Cell Distribution Width 13.2 % (11.8-14.3)
[2017-11-22 10:00] LABS: Urine Bacteria NONE SEEN /hpf (None Seen); Urine Blood Negative /uL (Negative); Urine Mucus FEW (None Seen); Urine Specific Gravity 1.014 (1.001-1.035); Urine WBC 1 /hpf (0 - 3)
[2017-11-22 15:04] LABS: Potassium 4.2 mmol/L (3.5-5.1)
[2017-11-22 15:16] LABS: Albumin 3.7 g/dL (3.4-5.0); BUN/Creatinine Ratio 14.8; Calcium 8.5 mg/dL (8.5-10.1)
[2017-11-23 17:03] LABS: Bilirubin, Total 0.7 mg/dL (0.2-1.0)
[2017-11-23 17:04] LABS: Total Protein 7.1 g/dL (6.4-8.2)
== END | disposition home or self-care (01) ==
LOC: LAB 09:06
PROVIDERS: ATTEND Family Medicine
DX: I25.10 Atherosclerotic heart disease of native coronary artery without angina pectoris (principal); I63.8 Other cerebral infarction; K76.89 Other specified diseases of liver; K21.9 Gastro-esophageal reflux disease without esophagitis; I10 Essential (primary) hypertension; Z79.899 Other long term (current) drug therapy; Z87.891 Personal history of nicotine dependence
CPT/HCPCS: 36415; 80053; 80061; 81001; 82607; 84443; 85025

== ENCOUNTER → 2017-12-28 | Outpatient (CLI) | payer OTHER | END | disposition home or self-care (01) | LOC: LAB 08:52 | PROVIDERS: ATTEND Family Medicine | DX: K76.89 Other specified diseases of liver (principal); I25.10 Atherosclerotic heart disease of native coronary artery without angina pectoris; I10 Essential (primary) hypertension; K21.9 Gastro-esophageal reflux disease without esophagitis; Z79.899 Other long term (current) drug therapy | CPT/HCPCS: 36415; 82565; 84520 ==

== ENCOUNTER → 2018-04-05 | Outpatient (CLI) | payer OTHER | END | disposition home or self-care (01) | LOC: LAB 10:04 | PROVIDERS: ATTEND Internal Medicine Gastroenterology | DX: R10.9 Unspecified abdominal pain (principal) | CPT/HCPCS: 82784; 83516; 86255 ==

== ENCOUNTER → 2018-04-11 | Outpatient (CLI) | payer OTHER ==
[~2018-04-11] VITALS: Ht 167.6 cm; Wt 85.3 kg
[~2018-04-11] MED LIST changes: +ADENOSINE 72 MG in GIVE UN-DILUTED 0 ML IV STA
[2018-04-11 09:40] VITALS: BP 140/76
== END | disposition home or self-care (01) ==
LOC: XY 08:15
PROVIDERS: ATTEND Internal Medicine Cardiovascular Disease
DX: I20.8 Other forms of angina pectoris (principal)
CPT/HCPCS: 78452; 93017; A9500; J0153

== ENCOUNTER → 2018-04-20 | Outpatient (CLI) | payer OTHER ==
[~2018-04-20] MED LIST changes: -ADENOSINE 72 MG in GIVE UN-DILUTED 0 ML IV STA
== END | disposition home or self-care (01) ==
LOC: XYW 10:54
PROVIDERS: ATTEND Internal Medicine Cardiovascular Disease
DX: I20.8 Other forms of angina pectoris (principal)
CPT/HCPCS: 93306

== ENCOUNTER → 2018-10-19 | Outpatient (CLI) | payer OTHER, MEDICARE ==
[2018-10-19 10:23] LABS: Urine WBC None Seen /hpf (0 - 3)
[2018-10-19 10:27] LABS: Basophils # (auto) 0 uL; Basophils % (auto) 0.6 % (0.0-2.0); Eosinophils # (auto) 0.1 uL; Eosinophils % (auto) 1.8 % (0.0-7.0); Lymphocytes # (auto) 1.5 uL; Mean Corpuscular Hemoglobin 35.1 pg (28.0-32.0); Mean Corpuscular Hgb Conc. 33.6 g/dL (32.0-36.0); Mean Corpuscular Volume 104.5 fL (80.0-100.0); Platelet Count (auto) 140 10^3/uL (140-450); Red Cell Distribution Width 13.1 % (11.8-14.3)
[2018-10-19 10:30] LABS: Hematocrit 44.6 % (41.0-53.0); Lymphocytes % (auto) 28.2 % (10.0-50.0); Monocytes # (auto) 0.5 uL; Monocytes % (auto) 9.4 % (0.0-12.0); Neutrophils # (auto) 3.1 uL; Nucleated Red Blood Cells % 0.2 %; Red Blood Cells 4.27 10^6/uL (4.5-5.90); White Blood Cell 5.2 10^3/uL (4.4-10.8)
[2018-10-19 10:33] LABS: Urine Bacteria NONE SEEN /hpf (None Seen); Urine Blood Negative /uL (Negative); Urine Specific Gravity 1.011 (1.001-1.035)
[2018-10-19 10:54] LABS: Potassium 4.5 mmol/L (3.5-5.1)
[2018-10-19 11:14] LABS: Albumin 3.9 g/dL (3.4-5.0); BUN/Creatinine Ratio 14.1; Bilirubin, Total 0.8 mg/dL (0.2-1.0); Calcium 8.3 mg/dL (8.5-10.1); Total Protein 7.5 g/dL (6.4-8.2)
== END | disposition home or self-care (01) ==
LOC: LAB 09:44
PROVIDERS: ATTEND Family Medicine
DX: I11.0 Hypertensive heart disease with heart failure (principal); I50.42 Chronic combined systolic (congestive) and diastolic (congestive) heart failure; E78.2 Mixed hyperlipidemia; Z86.73 Personal history of transient ischemic attack (TIA), and cerebral infarction without residual deficits
CPT/HCPCS: 36415; 80053; 80061; 81001; 83036; 84443; 85025

== ENCOUNTER → 2019-01-25 | Outpatient (CLI) | payer OTHER ==
[~2019-01-25] VITALS: Ht 167.6 cm; Wt 88.5 kg
[~2019-01-25] MED LIST changes: +ADENOSINE 74 MG in GIVE UN-DILUTED 0 ML IV STA
== END | disposition home or self-care (01) ==
LOC: XY 08:12
PROVIDERS: ATTEND Internal Medicine
DX: I25.10 Atherosclerotic heart disease of native coronary artery without angina pectoris (principal); I38 Endocarditis, valve unspecified; I35.1 Nonrheumatic aortic (valve) insufficiency; Z86.73 Personal history of transient ischemic attack (TIA), and cerebral infarction without residual deficits
CPT/HCPCS: 78452; 93017; A9500; J0153

== ENCOUNTER 2019-02-28 08:32 | Inpatient (IN) | payer OTHER ==
[2019-02-26 10:01] LABS: Basophils # (auto) 0 uL; Basophils % (auto) 0.7 % (0.0-2.0); Eosinophils # (auto) 0.1 uL; Monocytes # (auto) 0.6 uL; Monocytes % (auto) 9.9 % (0.0-12.0); Nucleated Red Blood Cells % 0.1 %; Red Blood Cells 4.18 10^6/uL (4.5-5.90)
[2019-02-26 10:03] LABS: Eosinophils % (auto) 1.4 % (0.0-7.0); Hematocrit 43.7 % (41.0-53.0); Lymphocytes # (auto) 1.7 uL; Lymphocytes % (auto) 26.7 % (10.0-50.0); Mean Corpuscular Hgb Conc. 34.4 g/dL (32.0-36.0); Mean Corpuscular Volume 104.7 fL (80.0-100.0); Neutrophils # (auto) 3.9 uL; Neutrophils % (auto) 61.3 % (37.0-80.0); Platelet Count (auto) 149 10^3/uL (140-450); Red Cell Distribution Width 12.9 % (11.8-14.3); White Blood Cell 6.3 10^3/uL (4.4-10.8)
[2019-02-26 10:17] LABS: INR 1.11 (0.9-1.15); Partial Thromboplastin Time 27.7 sec (23.64-32.05)
[2019-02-26 10:21] LABS: Albumin 3.9 g/dL (3.4-5.0); Calcium 8.6 mg/dL (8.5-10.1); Potassium 4.6 mmol/L (3.5-5.1)
[2019-02-26 10:25] LABS: BUN/Creatinine Ratio 14.2; Total Protein 7.6 g/dL (6.4-8.2)
[~2019-02-28] VITALS: Ht 167.6 cm; Wt 88.2 kg
[~2019-02-28 08:32] MED LIST changes: -ADENOSINE 74 MG in GIVE UN-DILUTED 0 ML IV STA; -B-COCAP34 OR; +CLOP75TA41 PO; +LOSA-69 PO; -NIAC100T3 OR; +NIAC250T15 PO; +NITR0.4S29 SL; -SIMV-13 OR; +SIMV-8 PO
[2019-02-28] MEDS ORDERED: IODIXANOL 320MG/ML 100ML BTL IV ONE ×2 (09:35→10:13)
[2019-02-28] MEDS ORDERED: HEPARIN IN NS 1000Units/500mL 1,500 ML ONE (09:35)
[2019-02-28] MEDS ORDERED: LIDOCAINE 2%HCL (LOCAL ANESTH.) INJ 20ML MDV ONE (09:35)
[2019-02-28] MEDS ORDERED: ANGIOMAX 250 MG VIAL IV ONE (09:40)
[2019-02-28] MEDS ORDERED: MIDAZOLAM HCL 1MG/1ML-2 ML VIAL ONE (09:40)
[2019-02-28] MEDS ORDERED: fentaNYL CITRATE 100 MCG/2 ML VL ONE (09:40)
[2019-02-28] MEDS ORDERED: SODIUM CHL 0.9% 0 ML ONE (09:41)
[2019-02-28] MEDS ORDERED: diphenhdrAMINE HCL 50 MG/1 ML VL ONE (10:48)
[2019-02-28] MEDS ORDERED: methylPREDNISolone SOD SUCC 125 MG/2 ML VL ONE (10:49)
[2019-02-28] MEDS ORDERED: FAMOTIDINE (10MG/ML) 2ML VL IV ONE (10:50)
[2019-02-28] MEDS ORDERED: HYDROcodone-ACET 5/325MG TAB PO PRN (11:00)
[2019-02-28] MEDS ORDERED: ONDANSETRON HCL 4 MG/2 ML VIAL IV PRN (11:00)
[2019-02-28] MEDS ORDERED: MORPHINE SULF INJ 2 MG/ML SYRINGE 1ML IV PRN (11:00)
[2019-02-28] MEDS ORDERED: ACETAMINOPHEN 500 MG TAB PO PRN (11:00)
[2019-02-28] MEDS ORDERED: NITROGLYCERIN 0.4 MG SL TAB SL PRN (11:00)
[2019-02-28] MEDS ORDERED: LOSARTAN POTASSIUM 50 MG TAB PO ONE (11:30)
[2019-02-28] MEDS ORDERED: CLOPIDOGREL BISULFATE 75 MG TAB PO ONE (11:30)
[2019-02-28] MEDS ORDERED: ASPirin 81 mg TAB PO ONE (11:30)
[2019-02-28] MEDS ORDERED: CYANOCOBALAMIN 500 MCG TAB PO ONE (11:30)
[2019-02-28] MEDS: CYANOCOBALAMIN 500 MCG TAB PO SCH (12:25)
[2019-02-28 17:59] VITALS: BP 140/79
--- NOTE | 2019-02-28 19:30 | NUR ---
Opening Shift Note Assumed care of patient, awake and alert x4. Patient denies shortness of breath or pain at this time. No S/S of distress noted or verbalized. Instructed on plan of care and to call for assistance as needed. Bed is locked in lowest position, side rails x 2 are up, call light is within reach, and bed alarm is on. Will continue patient care and to round hourly and as needed.
[2019-02-28] MEDS: ENOXAPARIN SOD 40 MG/0.4 ML SYRINGE SC SCH (21:10)
[2019-02-28] MEDS: ATORVASTATIN 20 MG TAB PO SCH (21:10)
[2019-02-28 21:30] VITALS: BP 138/73
[2019-02-28 22:00] VITALS: BP 155/82
[2019-03-01 05:00] VITALS: BP 117/67
[2019-03-01 08:00] VITALS: BP 117/69
[2019-03-01] MEDS ORDERED: LOSARTAN POTASSIUM 50 MG TAB PO SCH (10:00)
[2019-03-01] MEDS ORDERED: CLOPIDOGREL BISULFATE 75 MG TAB PO SCH (10:00)
[2019-03-01] MEDS: ASPirin 81 mg TAB PO SCH (10:22)
[2019-03-01] MEDS: CYANOCOBALAMIN 500 MCG TAB PO SCH (10:23)
[2019-03-01] MEDS: ENOXAPARIN SOD 40 MG/0.4 ML SYRINGE SC SCH ×2 (10:25→21:48)
[2019-03-01 12:00] VITALS: BP 119/71
[2019-03-01 17:00] VITALS: BP 136/76
[2019-03-01] MEDS: METOPROLOL TARTRATE 25 MG TAB PO SCH (21:48)
[2019-03-01] MEDS: ATORVASTATIN 20 MG TAB PO SCH (21:48)
[2019-03-01 22:00] VITALS: BP 142/81
[2019-03-02 05:00] VITALS: BP 124/71
--- NOTE | 2019-03-02 06:42 | NUR ---
CLOSING SHIFT NOTE Patient is laying in bed with even and unlabored respirations noted. No S/S of distress/SOB or pain noted. Bed is locked in lowest position, side rails x 2 are up, and call light is within reach. Will endorse patient care to day shift RN.
--- NOTE | 2019-03-02 07:10 | NUR ---
OPENING SHIFT NOTE ASSUMED CARE OF PATIENT FROM APPRENTICE PAINTER BRUSH RN BEN. PATIENT IS AWAKE AND ALERT X4. PATIENT HAS NO S/S OF DISTRESS/SOB OR PAIN. INSTRUCTED PATIENT ON POC, PATIENT VERBALIZED UNDERSTANDING. BED IS IN LOWEST POSITION WITH SIDE RAILS RAISED X2, BED WHEELS LOCKED, AND CALL LIGHT IS WITHIN REACH. WILL CONTINUE TO MONITOR.
[2019-03-02 08:00] VITALS: BP 131/75
--- NOTE | 2019-03-02 08:35 | NUR ---
MD JOSEPH AT BEDSIDE AND IS SPEAKING WITH PATIENT'S GIRLFRIEND AND DAUGHTER.
--- NOTE | 2019-03-02 10:00 | NUR ---
SPOKE WITH REVIT DRAFTER CRYSTAL AND PER REVIT DRAFTER CONTINUE LOVENOX AND ASPIRIN. WILL FOLLOW THROUGH WITH ORDERS.
[2019-03-02] MEDS: ASPirin 81 mg TAB PO SCH (10:42)
[2019-03-02] MEDS: CYANOCOBALAMIN 500 MCG TAB PO SCH (10:43)
[2019-03-02] MEDS: METOPROLOL TARTRATE 25 MG TAB PO SCH ×2 (10:45→21:26)
[2019-03-02] MEDS: ENOXAPARIN SOD 40 MG/0.4 ML SYRINGE SC SCH ×2 (10:45→21:26)
[2019-03-02 12:00] VITALS: BP 115/72
[2019-03-02 17:00] VITALS: BP 120/70
--- NOTE | 2019-03-02 19:16 | NUR ---
CLOSING SHIFT NOTE ENDORSED CARE TO MANAGER INSURANCE RN BEN. PATIENT HAS NO S/S OF DISTRESS/SOB OR PAIN AT THIS TIME.
--- NOTE | 2019-03-02 19:31 | NUR ---
Opening Shift Note Assumed care of patient, awake and alert x4. Patient denies shortness of breath or pain at this time. No S/S of distress noted or verbalized. Updated patient on plan of care, patient verbalized understanding. Instructed patient to call for assistance as needed. Bed is locked in lowest position, side rails x 2 are up, call light is within reach, and bed alarm is on. Will continue patient care and to round hourly and as needed.
[2019-03-02] MEDS: ATORVASTATIN 20 MG TAB PO SCH (21:26)
[2019-03-02 22:02] VITALS: BP 121/70
[2019-03-03 04:04] VITALS: BP 125/70
--- NOTE | 2019-03-03 08:00 | NUR ---
Opening Shift Note Assumed care of patient, awake and alert. No S/S of distress/SOB or pain. Instructed on POC and to call for assist PRN, will continue to monitor for changes Q1hr and PRN.
[2019-03-03 09:00] VITALS: BP 119/61
[2019-03-03] MEDS: CYANOCOBALAMIN 500 MCG TAB PO SCH (10:03)
[2019-03-03] MEDS: ENOXAPARIN SOD 40 MG/0.4 ML SYRINGE SC SCH ×2 (10:03→22:41)
[2019-03-03] MEDS: ASPirin 81 mg TAB PO SCH (10:03)
[2019-03-03] MEDS: METOPROLOL TARTRATE 25 MG TAB PO SCH ×2 (10:04→22:40)
[2019-03-03 13:00] VITALS: BP 98/58
[2019-03-03 17:00] VITALS: BP 109/67
--- NOTE | 2019-03-03 17:00 | NUR ---
Patient instructed to collect urine sample. Urine container provided.
[2019-03-03 21:00] VITALS: BP 147/79
[2019-03-03] MEDS: ATORVASTATIN 20 MG TAB PO SCH (22:40)
--- NOTE | 2019-03-03 22:40 | NUR ---
URINE COLLECTED AND SENT TO LAB Urine collected and sent to lab.
[2019-03-04 04:30] VITALS: BP 107/64
[2019-03-04 06:49] LABS: Urine WBC None Seen /hpf (0 - 3)
[2019-03-04 06:52] LABS: Basophils # (auto) 0 uL; Basophils % (auto) 0.5 % (0.0-2.0); Eosinophils # (auto) 0.1 uL; Eosinophils % (auto) 1.7 % (0.0-7.0); Hematocrit 42.4 % (41.0-53.0); Hemoglobin 14.6 g/dL (13.5-17.5); Lymphocytes # (auto) 1.9 uL; Lymphocytes % (auto) 24.4 % (10.0-50.0); Mean Corpuscular Hemoglobin 35.8 pg (28.0-32.0); Mean Corpuscular Hgb Conc. 34.3 g/dL (32.0-36.0); Mean Corpuscular Volume 104.4 fL (80.0-100.0); Monocytes # (auto) 0.8 uL; Monocytes % (auto) 10.4 % (0.0-12.0); Neutrophils # (auto) 4.9 uL; Nucleated Red Blood Cells % 0.1 %; Platelet Count (auto) 136 10^3/uL (140-450); Red Blood Cells 4.07 10^6/uL (4.5-5.90); Red Cell Distribution Width 12.9 % (11.8-14.3); White Blood Cell 7.8 10^3/uL (4.4-10.8)
[2019-03-04 07:07] LABS: Urine Bacteria FEW /hpf (None Seen); Urine Blood Negative /uL (Negative); Urine Specific Gravity 1.011 (1.001-1.035)
[2019-03-04 07:16] LABS: Anion Gap 6 (5-15); Blood Urea Nitrogen 20 mg/dL (7-18); Calcium 8.5 mg/dL (8.5-10.1); Carbon Dioxide 26 mmol/L (21-32); Chloride 109 mmol/L (98-107); Glucose 93 mg/dL (74-106); Potassium 4.4 mmol/L (3.5-5.1); Sodium 141 mmol/L (136-145)
[2019-03-04 07:23] LABS: BUN/Creatinine Ratio 17.2; GFR African American 78 mL/min; GFR Non-African American 64 mL/min
[2019-03-04 08:00] VITALS: BP 120/72
[2019-03-04] MEDS: CYANOCOBALAMIN 500 MCG TAB PO SCH (09:45)
[2019-03-04] MEDS: ASPirin 81 mg TAB PO SCH (09:45)
[2019-03-04] MEDS: ENOXAPARIN SOD 40 MG/0.4 ML SYRINGE SC SCH ×2 (09:45→22:41)
[2019-03-04] MEDS: METOPROLOL TARTRATE 25 MG TAB PO SCH ×2 (09:46→22:41)
[2019-03-04 12:00] VITALS: BP 113/66
[2019-03-04 17:00] VITALS: BP 123/71
[2019-03-04 22:31] VITALS: BP 131/77
[2019-03-04] MEDS: ATORVASTATIN 20 MG TAB PO SCH (22:41)
[2019-03-05 05:28] VITALS: BP 103/70
[2019-03-05 08:31] LABS: Eosinophils # (auto) 0.2 uL; Mean Corpuscular Hgb Conc. 34.5 g/dL (32.0-36.0); Monocytes # (auto) 0.8 uL; Monocytes % (auto) 11.4 % (0.0-12.0); Nucleated Red Blood Cells % 0.1 %; Platelet Count (auto) 138 10^3/uL (140-450); White Blood Cell 6.8 10^3/uL (4.4-10.8)
[2019-03-05 08:34] LABS: Basophils # (auto) 0.1 uL; Eosinophils % (auto) 2.9 % (0.0-7.0); Hematocrit 42.6 % (41.0-53.0); Hemoglobin 14.7 g/dL (13.5-17.5); Lymphocytes % (auto) 28.8 % (10.0-50.0); Mean Corpuscular Hemoglobin 36.1 pg (28.0-32.0); Mean Corpuscular Volume 104.7 fL (80.0-100.0); Neutrophils # (auto) 3.8 uL; Neutrophils % (auto) 55.9 % (37.0-80.0); Red Blood Cells 4.07 10^6/uL (4.5-5.90); Red Cell Distribution Width 12.9 % (11.8-14.3)
[2019-03-05 08:55] LABS: BUN/Creatinine Ratio 18.1; Calcium 8.7 mg/dL (8.5-10.1); Potassium 4.4 mmol/L (3.5-5.1)
[2019-03-05 09:20] VITALS: BP 121/62
[2019-03-05] MEDS: METOPROLOL TARTRATE 25 MG TAB PO SCH (10:02)
[2019-03-05] MEDS: ASPirin 81 mg TAB PO SCH (10:02)
[2019-03-05] MEDS: CYANOCOBALAMIN 500 MCG TAB PO SCH (10:03)
[2019-03-05] MEDS: ENOXAPARIN SOD 40 MG/0.4 ML SYRINGE SC SCH (10:03)
--- NOTE | 2019-03-05 11:40 | NUR ---
Dr. Amin at bedside.
[2019-03-05 13:07] VITALS: BP 117/62
--- NOTE | 2019-03-05 14:10 | NUR ---
Discharge instructions given as ordered. Encourage to follow up with PMD and Dr. Mckoy as instructed. Patient instructed that Dr. Mckoy's office will call for the schedule of open heart surgery, contact information provided. All questions and concerns addressed. Patient verbalized understanding. Medication reconciliation form completed and copy given to patient. IV removed with catheter intact, pressure dressing applied. Telemetry unit returned to [facility]. Patient taken to vehicle via wheelchair with all personal belongings, accompanied by staff and family member. No distress noted at time of departure.
--- NOTE | 2019-03-05 16:01 | NUR ---
Pt was discharged earlier today. He will return on for open heart surgery.
== END 2019-03-05 14:10 | disposition home or self-care (01) | DRG 287 ==
LOC: CATH 08:32 → TELE-EAST 08:33
PROVIDERS: ADMIT Internal Medicine; ATTEND Internal Medicine
PROC: B2111ZZ Fluoroscopy of Multiple Coronary Arteries using Low Osmolar Contrast (ICD-10-PCS; principal; 2019-02-28)
PROC: 4A023N7 Measurement of Cardiac Sampling and Pressure, Left Heart, Percutaneous Approach (ICD-10-PCS; 2019-02-28)
PROC: B2151ZZ Fluoroscopy of Left Heart using Low Osmolar Contrast (ICD-10-PCS; 2019-02-28)
PROC: 4A033BC Measurement of Arterial Pressure, Coronary, Percutaneous Approach (ICD-10-PCS; 2019-02-28)
DX: I25.10 Atherosclerotic heart disease of native coronary artery without angina pectoris (principal); E87.2 Acidosis; I69.354 Hemiplegia and hemiparesis following cerebral infarction affecting left non-dominant side; Z68.31 Body mass index [BMI] 31.0-31.9, adult; E66.9 Obesity, unspecified; E78.5 Hyperlipidemia, unspecified; F17.200 Nicotine dependence, unspecified, uncomplicated; H53.462 Homonymous bilateral field defects, left side; H91.90 Unspecified hearing loss, unspecified ear; I12.9 Hypertensive chronic kidney disease with stage 1 through stage 4 chronic kidney disease, or unspecified chronic kidney disease; I25.2 Old myocardial infarction; N18.2 Chronic kidney disease, stage 2 (mild); Z79.01 Long term (current) use of anticoagulants; Z79.82 Long term (current) use of aspirin; Z83.3 Family history of diabetes mellitus; Z95.1 Presence of aortocoronary bypass graft; Z95.5 Presence of coronary angioplasty implant and graft; I69.398 Other sequelae of cerebral infarction
CPT/HCPCS: 36415; 36600; 80048; 80053; 81001; 82565; 82805; 83880; 84443; 84484; 85025; 85610; 85730; 93306; 93458; 93886; 99152; G0378; J2250; J3490; Q9967

== ENCOUNTER → 2019-10-17 | Outpatient (CLI) | payer OTHER ==
[2019-10-17 09:28] LABS: Eosinophils # (auto) 0.1 10 ^3/uL (0-0.8); Lymphocytes # (auto) 1.4 10 ^3/uL (0.4-5.4); Nucleated Red Blood Cells % 0.1 %; Red Blood Cells 4.06 10^6/uL (4.5-5.90)
[2019-10-17 09:29] LABS: Basophils # (auto) 0.1 10 ^3/uL (0-0.2); Hematocrit 41.8 % (41.0-53.0); Hemoglobin 14.4 g/dL (13.5-17.5); Mean Corpuscular Hemoglobin 35.5 pg (28.0-32.0); Mean Corpuscular Hgb Conc. 34.5 g/dL (32.0-36.0); Mean Corpuscular Volume 102.9 fL (80.0-100.0); Monocytes # (auto) 0.5 10 ^3/uL (0-1.3); Monocytes % (auto) 9.6 % (0.0-12.0); Neutrophils # (auto) 3.2 10 ^3/uL (1.6-8.6); Neutrophils % (auto) 60.4 % (37.0-80.0); Platelet Count (auto) 150 10^3/uL (140-450); Red Cell Distribution Width 12.9 % (11.8-14.3); White Blood Cell 5.3 10^3/uL (4.4-10.8)
[2019-10-17 09:37] LABS: Albumin 3.6 g/dL (3.4-5.0)
[2019-10-17 09:44] LABS: BUN/Creatinine Ratio 10.9; Bilirubin, Total 0.6 mg/dL (0.2-1.0); Calcium 8.4 mg/dL (8.5-10.1); Total Protein 7.3 g/dL (6.4-8.2)
== END | disposition home or self-care (01) ==
LOC: LAB 08:38
PROVIDERS: ATTEND Internal Medicine
DX: N18.2 Chronic kidney disease, stage 2 (mild) (principal); I50.43 Acute on chronic combined systolic (congestive) and diastolic (congestive) heart failure; I25.10 Atherosclerotic heart disease of native coronary artery without angina pectoris; E78.2 Mixed hyperlipidemia
CPT/HCPCS: 36415; 80053; 80061; 85025

== ENCOUNTER → 2020-05-07 | Outpatient (CLI) | payer OTHER ==
[2020-05-07 10:16] LABS: Albumin 3.9 g/dL (3.4-5.0); Calcium 8.3 mg/dL (8.5-10.1); Potassium 4.3 mmol/L (3.5-5.1)
[2020-05-07 10:19] LABS: BUN/Creatinine Ratio 13.2; Bilirubin, Total 0.9 mg/dL (0.2-1.0); Total Protein 7.1 g/dL (6.4-8.2)
== END | disposition home or self-care (01) ==
LOC: LAB 09:40
PROVIDERS: ATTEND Internal Medicine
DX: I10 Essential (primary) hypertension (principal); E78.2 Mixed hyperlipidemia; Z95.1 Presence of aortocoronary bypass graft
CPT/HCPCS: 36415; 80053; 84439; 84443

== ENCOUNTER → 2020-05-15 | Outpatient (CLI) | payer OTHER | END | disposition home or self-care (01) | LOC: XYW 09:31 | PROVIDERS: ATTEND Internal Medicine | DX: I10 Essential (primary) hypertension (principal) | CPT/HCPCS: 93306 ==

== ENCOUNTER → 2020-06-05 | Outpatient (CLI) | payer OTHER ==
[~2020-06-05] VITALS: Ht 167.6 cm; Wt 86.2 kg
[~2020-06-05] MED LIST changes: +ADENOSINE 72 MG in GIVE UN-DILUTED 0 ML IV STA
== END | disposition home or self-care (01) ==
LOC: XY 07:12
PROVIDERS: ATTEND Internal Medicine
DX: I42.9 Cardiomyopathy, unspecified (principal); R07.9 Chest pain, unspecified
CPT/HCPCS: 78452; 93017; A9500; J0153

== ENCOUNTER → 2020-11-19 | Outpatient (CLI) | payer OTHER ==
[~2020-11-19] MED LIST changes: -ADENOSINE 72 MG in GIVE UN-DILUTED 0 ML IV STA; -CLOP75TA41 PO; +CLOP75TA70 PO
[2020-11-19 10:06] LABS: Basophils # (auto) 0 10 ^3/uL (0-0.2); Eosinophils # (auto) 0.1 10 ^3/uL (0-0.8); Lymphocytes # (auto) 1.2 10 ^3/uL (0.4-5.4); Monocytes # (auto) 0.5 10 ^3/uL (0-1.3); Neutrophils # (auto) 3.2 10 ^3/uL (1.6-8.6); Platelet Count (auto) 144 10^3/uL (140-450)
[2020-11-19 10:08] LABS: Basophils % (auto) 0.8 % (0.0-2.0); Eosinophils % (auto) 2.1 % (0.0-7.0); Hematocrit 43.8 % (41.0-53.0); Hemoglobin 14.9 g/dL (13.5-17.5); Lymphocytes % (auto) 23.4 % (10.0-50.0); Mean Corpuscular Hemoglobin 35.5 pg (28.0-32.0); Mean Corpuscular Volume 104.4 fL (80.0-100.0); Monocytes % (auto) 9.8 % (0.0-12.0); Neutrophils % (auto) 63.9 % (37.0-80.0); Red Cell Distribution Width 13.1 % (11.8-14.3); Urine Blood Negative /uL (Negative); Urine Specific Gravity 1.013 (1.001-1.035); White Blood Cell 4.9 10^3/uL (4.4-10.8)
[2020-11-19 10:58] LABS: Albumin 3.9 g/dL (3.4-5.0); Calcium 8.8 mg/dL (8.5-10.1); Potassium 4.1 mmol/L (3.5-5.1)
[2020-11-19 11:03] LABS: BUN/Creatinine Ratio 10.9; Bilirubin, Direct 0.2 mg/dL (0-0.2); Bilirubin, Total 0.7 mg/dL (0.2-1.0); Total Protein 7.4 g/dL (6.4-8.2)
== END | disposition home or self-care (01) ==
LOC: LAB 09:46
PROVIDERS: ATTEND Internal Medicine Cardiovascular Disease
DX: C61 Malignant neoplasm of prostate (principal); I10 Essential (primary) hypertension; D51.3 Other dietary vitamin B12 deficiency anemia; E11.9 Type 2 diabetes mellitus without complications; E55.9 Vitamin D deficiency, unspecified; D64.9 Anemia, unspecified; R00.2 Palpitations; R53.1 Weakness; R30.0 Dysuria
CPT/HCPCS: 36415; 80048; 80061; 80076; 81003; 82306; 83036; 84153; 84403; 84443; 85025

== ENCOUNTER → 2020-12-25 | Outpatient (CLI) | payer OTHER | END | disposition home or self-care (01) | LOC: Rad HDHVI 14:51 | PROVIDERS: ATTEND Internal Medicine Cardiovascular Disease | DX: I11.9 Hypertensive heart disease without heart failure (principal) | CPT/HCPCS: 93306 ==

== ENCOUNTER → 2020-12-31 | Outpatient (CLI) | payer OTHER | END | disposition home or self-care (01) | LOC: Rad HDHVI 13:07 | PROVIDERS: ATTEND Internal Medicine Cardiovascular Disease | DX: I10 Essential (primary) hypertension (principal); E78.5 Hyperlipidemia, unspecified | CPT/HCPCS: 93880 ==

== ENCOUNTER → 2021-01-07 | Outpatient (CLI) | payer OTHER ==
[~2021-01-07] VITALS: Ht 167.6 cm; Wt 86.2 kg
[~2021-01-07] MED LIST changes: +ADENOSINE 72 MG in GIVE UN-DILUTED 0 ML IV ONE; +ADENOSINE 90 MG/30 ML INJ IV ONE
== END | disposition home or self-care (01) ==
LOC: Rad HDHVI 13:16
PROVIDERS: ATTEND Internal Medicine Cardiovascular Disease
DX: I10 Essential (primary) hypertension (principal); E78.5 Hyperlipidemia, unspecified; I25.2 Old myocardial infarction; Z95.1 Presence of aortocoronary bypass graft; Z79.899 Other long term (current) drug therapy; Z82.49 Family history of ischemic heart disease and other diseases of the circulatory system
CPT/HCPCS: 78452; 93005; 96374; 96375; A9500; J0153

== ENCOUNTER → 2021-08-11 | Outpatient (CLI) | payer OTHER ==
[~2021-08-11] MED LIST changes: -ADENOSINE 72 MG in GIVE UN-DILUTED 0 ML IV ONE; -ADENOSINE 90 MG/30 ML INJ IV ONE
[2021-08-11 10:11] LABS: Urine Blood Negative /uL (Negative); Urine Specific Gravity 1.016 (1.001-1.035)
[2021-08-11 10:22] LABS: Monocytes # (auto) 0.5 10 ^3/uL (0-1.3); Nucleated Red Blood Cells % 0.1 %
[2021-08-11 10:28] LABS: Basophils # (auto) 0 10 ^3/uL (0-0.2); Basophils % (auto) 0.9 % (0.0-2.0); Eosinophils # (auto) 0.2 10 ^3/uL (0-0.8); Eosinophils % (auto) 2.8 % (0.0-7.0); Hemoglobin 14.3 g/dL (13.5-17.5); Lymphocytes # (auto) 1.5 10 ^3/uL (0.4-5.4); Lymphocytes % (auto) 27.2 % (10.0-50.0); Mean Corpuscular Hemoglobin 35.6 pg (28.0-32.0); Mean Corpuscular Hgb Conc. 34.8 g/dL (32.0-36.0); Mean Corpuscular Volume 102.3 fL (80.0-100.0); Monocytes % (auto) 9.1 % (0.0-12.0); Neutrophils # (auto) 3.3 10 ^3/uL (1.6-8.6); Red Blood Cells 4.01 10^6/uL (4.5-5.90); White Blood Cell 5.5 10^3/uL (4.4-10.8)
[2021-08-11 10:31] LABS: Albumin 3.8 g/dL (3.4-5.0); Calcium 8.5 mg/dL (8.5-10.1); Potassium 4.2 mmol/L (3.5-5.1)
[2021-08-11 10:36] LABS: BUN/Creatinine Ratio 11.1; Total Protein 6.7 g/dL (6.4-8.2)
== END | disposition home or self-care (01) ==
LOC: LAB 09:36
PROVIDERS: ATTEND Family Medicine
DX: I25.119 Atherosclerotic heart disease of native coronary artery with unspecified angina pectoris (principal); I25.10 Atherosclerotic heart disease of native coronary artery without angina pectoris
CPT/HCPCS: 36415; 80053; 80061; 81003; 82306; 83036; 85025

== ENCOUNTER → 2021-10-28 | Outpatient (CLI) | payer OTHER | END | disposition home or self-care (01) | LOC: LAB 09:10 | PROVIDERS: ATTEND Student in an Organized Health Care Education/Training Program | DX: Z12.11 Encounter for screening for malignant neoplasm of colon (principal) | CPT/HCPCS: 82274 ==

== ENCOUNTER → 2022-01-16 | Outpatient (CLI) | payer OTHER ==
[2022-01-16 12:19] LABS: Urine Bacteria NONE SEEN /hpf (None Seen); Urine Blood Negative /uL (Negative); Urine Specific Gravity 1.013 (1.001-1.035); Urine WBC 1 /hpf (0 - 3)
[2022-01-16 12:21] LABS: Basophils # (auto) 0.1 10 ^3/uL (0-0.2); Monocytes # (auto) 0.5 10 ^3/uL (0-1.3)
[2022-01-16 12:23] LABS: Eosinophils # (auto) 0.1 10 ^3/uL (0-0.8); Eosinophils % (auto) 2.5 % (0.0-7.0); Hematocrit 41.1 % (41.0-53.0); Hemoglobin 14.7 g/dL (13.5-17.5); Lymphocytes # (auto) 1.4 10 ^3/uL (0.4-5.4); Lymphocytes % (auto) 25.4 % (10.0-50.0); Mean Corpuscular Hemoglobin 36.2 pg (28.0-32.0); Mean Corpuscular Hgb Conc. 35.7 g/dL (32.0-36.0); Mean Corpuscular Volume 101.4 fL (80.0-100.0); Neutrophils # (auto) 3.5 10 ^3/uL (1.6-8.6); Neutrophils % (auto) 62.1 % (37.0-80.0); Nucleated Red Blood Cells % 0.2 %; Red Blood Cells 4.05 10^6/uL (4.5-5.90); Red Cell Distribution Width 13.3 % (11.8-14.3); White Blood Cell 5.7 10^3/uL (4.4-10.8)
[2022-01-16 12:41] LABS: Albumin 3.7 g/dL (3.4-5.0); Calcium 8.6 mg/dL (8.5-10.1); Potassium 4.2 mmol/L (3.5-5.1)
[2022-01-16 12:46] LABS: BUN/Creatinine Ratio 12.7; Bilirubin, Direct 0.2 mg/dL (0-0.2); Bilirubin, Total 0.6 mg/dL (0.2-1.0); Total Protein 7.2 g/dL (6.4-8.2)
== END | disposition home or self-care (01) ==
LOC: LAB 09:40
PROVIDERS: ATTEND Internal Medicine Cardiovascular Disease
DX: D64.9 Anemia, unspecified (principal); D51.3 Other dietary vitamin B12 deficiency anemia; E11.9 Type 2 diabetes mellitus without complications; E55.9 Vitamin D deficiency, unspecified; I10 Essential (primary) hypertension; R00.2 Palpitations; R53.1 Weakness; R30.0 Dysuria; C61 Malignant neoplasm of prostate
CPT/HCPCS: 36415; 80048; 80061; 80076; 81001; 82306; 83036; 84153; 84403; 84443; 85025

== ENCOUNTER → 2022-02-03 | Outpatient (CLI) | payer OTHER ==
[~2022-02-03] VITALS: Ht 167.6 cm; Wt 86.2 kg
[~2022-02-03] MED LIST changes: +ADENOSINE 72 MG in GIVE UN-DILUTED 0 ML IV ONE; +ADENOSINE 90 MG/30 ML INJ IV ONE
== END | disposition home or self-care (01) ==
LOC: Rad HDHVI 09:20
PROVIDERS: ATTEND Internal Medicine Cardiovascular Disease
DX: I21.9 Acute myocardial infarction, unspecified (principal); I10 Essential (primary) hypertension; E78.00 Pure hypercholesterolemia, unspecified; I25.2 Old myocardial infarction; E78.5 Hyperlipidemia, unspecified; Z95.1 Presence of aortocoronary bypass graft; Z82.49 Family history of ischemic heart disease and other diseases of the circulatory system
CPT/HCPCS: 78452; 93005; 96374; 96375; A9500; J0153

== ENCOUNTER → 2022-02-05 | Outpatient (CLI) | payer OTHER ==
[~2022-02-05] MED LIST changes: -ADENOSINE 72 MG in GIVE UN-DILUTED 0 ML IV ONE; -ADENOSINE 90 MG/30 ML INJ IV ONE
== END | disposition home or self-care (01) ==
LOC: RT 15:17
PROVIDERS: ATTEND Internal Medicine Cardiovascular Disease
DX: I50.23 Acute on chronic systolic (congestive) heart failure (principal); E78.5 Hyperlipidemia, unspecified
CPT/HCPCS: 93306

== ENCOUNTER → 2022-03-30 | Outpatient (CLI) | payer OTHER ==
[~2022-03-30] MED LIST changes: +CHOL20007 PO; +NIAC250T19 PO
[2022-03-30 10:03] VITALS: BP 106/54
[2022-03-30 10:17] VITALS: BP 101/57
[2022-03-30 16:36] LABS: BUN/Creatinine Ratio 16.4; Calcium 8.7 mg/dL (8.5-10.1); Potassium 4.6 mmol/L (3.5-5.1)
[2022-03-30 16:52] LABS: Basophils # (auto) 0 10 ^3/uL (0-0.2); Basophils % (auto) 0.5 % (0.0-2.0); Eosinophils # (auto) 0.1 10 ^3/uL (0-0.8); Eosinophils % (auto) 1.6 % (0.0-7.0); Lymphocytes # (auto) 1.3 10 ^3/uL (0.4-5.4); Monocytes # (auto) 0.5 10 ^3/uL (0-1.3); Neutrophils # (auto) 4.4 10 ^3/uL (1.6-8.6)
[2022-03-30 16:54] LABS: Hematocrit 42.3 % (41.0-53.0); Hemoglobin 13.8 g/dL (13.5-17.5); Mean Corpuscular Hemoglobin 34.3 pg (28.0-32.0); Mean Corpuscular Hgb Conc. 32.7 g/dL (32.0-36.0); Mean Corpuscular Volume 104.9 fL (80.0-100.0); Monocytes % (auto) 7.3 % (0.0-12.0); Neutrophils % (auto) 69.6 % (37.0-80.0); Red Blood Cells 4.03 10^6/uL (4.5-5.90); Red Cell Distribution Width 13.4 % (11.8-14.3); White Blood Cell 6.4 10^3/uL (4.4-10.8)
[2022-03-30 17:06] LABS: INR 1.14 (0.9-1.15); Partial Thromboplastin Time 28.4 sec (24.6-33.4)
== END | disposition home or self-care (01) ==
LOC: Rad HDHVI 09:48
PROVIDERS: ATTEND Internal Medicine Cardiovascular Disease
DX: Z01.812 Encounter for preprocedural laboratory examination (principal); M47.814 Spondylosis without myelopathy or radiculopathy, thoracic region; R79.1 Abnormal coagulation profile; I25.10 Atherosclerotic heart disease of native coronary artery without angina pectoris; I10 Essential (primary) hypertension; I99.8 Other disorder of circulatory system; I70.0 Atherosclerosis of aorta
CPT/HCPCS: 36415; 71046; 80048; 85025; 85610; 85730; 93005; G0463

== ENCOUNTER 2022-04-01 07:48 | Day surgery (SDC) | payer OTHER ==
[2022-04-01] VITALS (8 sets, daily range): BP systolic 120–136; BP diastolic 65–77
[~2022-04-01] VITALS: Ht 167.6 cm; Wt 88.0 kg
[~2022-04-01 07:48] MED LIST changes: -LOSA-69 PO
[2022-04-01] MEDS ORDERED: LIDOCAINE 2%HCL (LOCAL ANESTH.) INJ 20ML MDV ONE (10:13)
[2022-04-01] MEDS ORDERED: IOHEXOL 350 MG/ML 100ML IJ ONE ×3 (10:13→11:16)
[2022-04-01] MEDS ORDERED: ANGIOMAX 250 MG VIAL IV ONE (10:31)
[2022-04-01] MEDS ORDERED: MIDAZOLAM HCL 2MG/2ML 2ml VIAL (1mg/ml) ONE (10:32)
[2022-04-01] MEDS ORDERED: SODIUM CHL 0.9% 50 ML ONE (10:32)
[2022-04-01] MEDS ORDERED: fentaNYL CITRATE 100 MCG/2 ML VL ONE (10:32)
== END 2022-04-01 14:05 | disposition home or self-care (01) ==
LOC: CATH 07:48
PROVIDERS: ATTEND Internal Medicine Cardiovascular Disease
DX: R07.9 Chest pain, unspecified (principal); I25.10 Atherosclerotic heart disease of native coronary artery without angina pectoris; I11.0 Hypertensive heart disease with heart failure; I50.9 Heart failure, unspecified; I25.2 Old myocardial infarction; Z95.5 Presence of coronary angioplasty implant and graft; Z87.891 Personal history of nicotine dependence; Z82.49 Family history of ischemic heart disease and other diseases of the circulatory system; Z20.822 Contact with and (suspected) exposure to COVID-19; Z79.02 Long term (current) use of antithrombotics/antiplatelets; Z79.82 Long term (current) use of aspirin
CPT/HCPCS: 92960; 93456; C1726; C1760; C1769; C1874; C1887; C1894; J0583; J1644; J2250; J3010; J7040; Q9967; U0003; 99152; 99153

== ENCOUNTER → 2022-05-07 | Outpatient (CLI) | payer OTHER ==
[~2022-05-07] MED LIST changes: +LOSA25TA38 PO
[2022-05-07 10:15] VITALS: BP 120/63
[2022-05-07 10:32] VITALS: BP 125/61
[2022-05-07 16:16] LABS: Basophils # (auto) 0 10 ^3/uL (0-0.2); Basophils % (auto) 0.7 % (0.0-2.0); Eosinophils # (auto) 0.1 10 ^3/uL (0-0.8); Eosinophils % (auto) 2.3 % (0.0-7.0); Hematocrit 41.8 % (41.0-53.0); Hemoglobin 13.9 g/dL (13.5-17.5); Lymphocytes # (auto) 1.3 10 ^3/uL (0.4-5.4); Lymphocytes % (auto) 25.1 % (10.0-50.0); Mean Corpuscular Hemoglobin 34.7 pg (28.0-32.0); Mean Corpuscular Hgb Conc. 33.3 g/dL (32.0-36.0); Mean Corpuscular Volume 104.2 fL (80.0-100.0); Monocytes # (auto) 0.5 10 ^3/uL (0-1.3); Monocytes % (auto) 9.8 % (0.0-12.0); Neutrophils # (auto) 3.2 10 ^3/uL (1.6-8.6); Neutrophils % (auto) 62.1 % (37.0-80.0); Nucleated Red Blood Cells % 0.1 %; Red Blood Cells 4.01 10^6/uL (4.5-5.90); Red Cell Distribution Width 13.2 % (11.8-14.3); White Blood Cell 5.2 10^3/uL (4.4-10.8)
[2022-05-07 16:26] LABS: INR 1.18 (0.9-1.15); Partial Thromboplastin Time 29.6 sec (24.6-33.4)
[2022-05-07 16:28] LABS: BUN/Creatinine Ratio 11.6; Potassium 4.2 mmol/L (3.5-5.1)
== END | disposition home or self-care (01) ==
LOC: Rad HDHVI 09:45
PROVIDERS: ATTEND Internal Medicine Cardiovascular Disease
DX: Z01.818 Encounter for other preprocedural examination (principal); R94.31 Abnormal electrocardiogram [ECG] [EKG]; I70.0 Atherosclerosis of aorta; I25.10 Atherosclerotic heart disease of native coronary artery without angina pectoris; I10 Essential (primary) hypertension; M47.814 Spondylosis without myelopathy or radiculopathy, thoracic region; R79.1 Abnormal coagulation profile
CPT/HCPCS: 36415; 71046; 80048; 85025; 85610; 85730; 93005; G0463

== ENCOUNTER 2022-05-11 06:47 | Day surgery (SDC) | payer OTHER ==
[2022-05-11] VITALS (9 sets, daily range): BP systolic 121–138; BP diastolic 63–78
[~2022-05-11] VITALS: Ht 167.6 cm; Wt 86.2 kg
[~2022-05-11 06:47] MED LIST changes: -NIAC250T15 PO
[2022-05-11] MEDS ORDERED: LIDOCAINE 2%HCL (LOCAL ANESTH.) INJ 20ML MDV ONE (08:42)
[2022-05-11] MEDS ORDERED: IOHEXOL 350 MG/ML 100ML IJ ONE ×2 (08:42→09:40)
[2022-05-11] MEDS ORDERED: MIDAZOLAM HCL 2MG/2ML 2ml VIAL (1mg/ml) ONE (08:50)
[2022-05-11] MEDS ORDERED: ANGIOMAX 250 MG VIAL IV ONE (08:50)
[2022-05-11] MEDS ORDERED: SODIUM CHL 0.9% 50 ML ONE (08:50)
[2022-05-11] MEDS ORDERED: fentaNYL CITRATE 100 MCG/2 ML VL ONE (08:50)
== END 2022-05-11 12:37 | disposition home or self-care (01) ==
LOC: CATH 06:47
PROVIDERS: ATTEND Internal Medicine Cardiovascular Disease
DX: I25.118 Atherosclerotic heart disease of native coronary artery with other forms of angina pectoris (principal); I25.2 Old myocardial infarction; E66.01 Morbid (severe) obesity due to excess calories; Z86.73 Personal history of transient ischemic attack (TIA), and cerebral infarction without residual deficits; I25.5 Ischemic cardiomyopathy; Z20.822 Contact with and (suspected) exposure to COVID-19; Z95.1 Presence of aortocoronary bypass graft; I25.709 Atherosclerosis of coronary artery bypass graft(s), unspecified, with unspecified angina pectoris
CPT/HCPCS: 93571; C1725; C1726; C1760; C1769; C1874; C1887; C1894; C9600; J0583; J1644; J2250; J3010; Q9967; U0003; 99152; 99153

== ENCOUNTER → 2022-06-11 | Outpatient (CLI) | payer OTHER ==
[~2022-06-11] VITALS: Ht 167.6 cm; Wt 86.2 kg
[~2022-06-11] MED LIST changes: +ADENOSINE 72 MG in GIVE UN-DILUTED 0 ML IV ONE; +ADENOSINE 90 MG/30 ML INJ IV ONE
== END | disposition home or self-care (01) ==
LOC: Rad HDHVI 08:05
PROVIDERS: ATTEND Internal Medicine Cardiovascular Disease
DX: I11.0 Hypertensive heart disease with heart failure (principal); I50.23 Acute on chronic systolic (congestive) heart failure; I25.10 Atherosclerotic heart disease of native coronary artery without angina pectoris; I25.2 Old myocardial infarction; I25.5 Ischemic cardiomyopathy; E78.5 Hyperlipidemia, unspecified; Z82.49 Family history of ischemic heart disease and other diseases of the circulatory system; Z95.1 Presence of aortocoronary bypass graft
CPT/HCPCS: 78452; 93005; 96374; 96375; A9500; J0153

== ENCOUNTER → 2022-06-14 | Outpatient (CLI) | payer OTHER ==
[~2022-06-14] MED LIST changes: -ADENOSINE 72 MG in GIVE UN-DILUTED 0 ML IV ONE; -ADENOSINE 90 MG/30 ML INJ IV ONE
== END | disposition home or self-care (01) ==
LOC: Rad HDHVI 08:04
PROVIDERS: ATTEND Internal Medicine Cardiovascular Disease
DX: I08.3 Combined rheumatic disorders of mitral, aortic and tricuspid valves (principal); E78.5 Hyperlipidemia, unspecified; R06.02 Shortness of breath
CPT/HCPCS: 93306

== ENCOUNTER → 2022-08-30 | Outpatient (CLI) | payer OTHER ==
[~2022-08-30] MED LIST changes: +ATO40T PO; +LOSA-69 PO
[2022-08-30 12:03] VITALS: BP 127/64
[2022-08-30 12:23] VITALS: BP 123/63
[2022-08-30 21:14] LABS: Basophils # (auto) 0 10 ^3/uL (0-0.2); Basophils % (auto) 0.8 % (0.0-2.0); Eosinophils # (auto) 0.1 10 ^3/uL (0-0.8); Eosinophils % (auto) 1.9 % (0.0-7.0); Hematocrit 43.1 % (41.0-53.0); Hemoglobin 14.4 g/dL (13.5-17.5); Lymphocytes # (auto) 1.2 10 ^3/uL (0.4-5.4); Lymphocytes % (auto) 22.7 % (10.0-50.0); Mean Corpuscular Hemoglobin 35.4 pg (28.0-32.0); Mean Corpuscular Hgb Conc. 33.4 g/dL (32.0-36.0); Monocytes # (auto) 0.5 10 ^3/uL (0-1.3); Monocytes % (auto) 9.2 % (0.0-12.0); Neutrophils # (auto) 3.6 10 ^3/uL (1.6-8.6); Neutrophils % (auto) 65.4 % (37.0-80.0); Nucleated Red Blood Cells % 0.1 %; Red Blood Cells 4.07 10^6/uL (4.5-5.90); Red Cell Distribution Width 13.9 % (11.8-14.3); White Blood Cell 5.5 10^3/uL (4.4-10.8)
[2022-08-30 21:26] LABS: BUN/Creatinine Ratio 13.1; Calcium 8.1 mg/dL (8.5-10.1); Potassium 4.2 mmol/L (3.5-5.1)
[2022-08-30 21:27] LABS: INR 1.15 (0.9-1.15); Partial Thromboplastin Time 29.6 sec (24.6-33.4)
== END | disposition home or self-care (01) ==
LOC: Rad HDHVI 11:46
PROVIDERS: ATTEND Internal Medicine Cardiovascular Disease
DX: R79.1 Abnormal coagulation profile (principal)
CPT/HCPCS: 36415; 71046; 80048; 85025; 85610; 85730; 93005; G0463

== ENCOUNTER 2022-09-02 07:20 | Day surgery (SDC) | payer OTHER ==
[2022-09-02] VITALS (8 sets, daily range): BP systolic 123–140; BP diastolic 64–79
[~2022-09-02] VITALS: Ht 167.6 cm; Wt 86.4 kg
[~2022-09-02 07:20] MED LIST changes: -CHOL20007 PO; -LOSA25TA38 PO; -NITR0.4S29 SL; -SIMV-8 PO
[2022-09-02] MEDS ORDERED: IODIXANOL 320MG/ML 100ML BTL IV ONE (07:45)
[2022-09-02] MEDS ORDERED: IOHEXOL 350 MG/ML 100ML IJ ONE ×3 (07:45→09:42)
[2022-09-02] MEDS ORDERED: LIDOCAINE 2%HCL (LOCAL ANESTH.) INJ 20ML MDV ONE (07:45)
[2022-09-02] MEDS ORDERED: fentaNYL CITRATE 100 MCG/2 ML VL ONE (08:37)
[2022-09-02] MEDS ORDERED: NITROGLYCERIN 5MG/ML 10ML VIAL IV ONE (08:37)
[2022-09-02] MEDS ORDERED: ANGIOMAX 250 MG VIAL IV ONE (08:37)
[2022-09-02] MEDS ORDERED: MIDAZOLAM HCL 2MG/2ML 2ml VIAL (1mg/ml) ONE (08:38)
[2022-09-02] MEDS ORDERED: SODIUM CHL 0.9% 50 ML ONE ×2 (08:38)
[2022-09-02] MEDS ORDERED: LIDOCAINE 2%HCL (LOCAL ANESTH.) INJ 10ml MDV ONE (09:06)
[2022-09-02] MEDS ORDERED: ATROPINE SULF 1 MG/10ml SYR ONE (09:44)
== END 2022-09-02 12:20 | disposition home or self-care (01) ==
LOC: CATH 07:20
PROVIDERS: ATTEND Internal Medicine Cardiovascular Disease
DX: I25.810 Atherosclerosis of coronary artery bypass graft(s) without angina pectoris (principal); I25.10 Atherosclerotic heart disease of native coronary artery without angina pectoris; I10 Essential (primary) hypertension; E78.5 Hyperlipidemia, unspecified; I25.2 Old myocardial infarction; R07.9 Chest pain, unspecified; R06.02 Shortness of breath; Z95.1 Presence of aortocoronary bypass graft; Z82.49 Family history of ischemic heart disease and other diseases of the circulatory system; Z87.01 Personal history of pneumonia (recurrent); Z87.891 Personal history of nicotine dependence; Z79.82 Long term (current) use of aspirin; Z79.899 Other long term (current) drug therapy; Z20.822 Contact with and (suspected) exposure to COVID-19
CPT/HCPCS: 93459; 93571; C1760; C1769; C1887; C1894; J0583; J1644; J2001; J2250; J3010; J3490; Q9967; U0003; 93572; 99152; 99153

== ENCOUNTER → 2023-02-23 | Outpatient (CLI) | payer OTHER ==
[~2023-02-23] MED LIST changes: -LOSA-69 PO; +LOSA50TA46 PO
== END | disposition home or self-care (01) ==
LOC: Rad HDHVI 13:00
PROVIDERS: ATTEND Internal Medicine Cardiovascular Disease
DX: I08.8 Other rheumatic multiple valve diseases (principal); I10 Essential (primary) hypertension; R07.89 Other chest pain
CPT/HCPCS: 93306

== ENCOUNTER → 2023-03-16 | Outpatient (CLI) | payer OTHER ==
[~2023-03-16] VITALS: Ht 167.6 cm; Wt 83.9 kg
[~2023-03-16] MED LIST changes: +ADENOSINE 70 MG in GIVE UN-DILUTED 0 ML IV ONE; +ADENOSINE 90 MG/30 ML INJ IV ONE
== END | disposition home or self-care (01) ==
LOC: Rad HDHVI 13:13
PROVIDERS: ATTEND Internal Medicine Cardiovascular Disease
DX: I11.0 Hypertensive heart disease with heart failure (principal); I50.43 Acute on chronic combined systolic (congestive) and diastolic (congestive) heart failure; E78.00 Pure hypercholesterolemia, unspecified; I25.10 Atherosclerotic heart disease of native coronary artery without angina pectoris; I25.2 Old myocardial infarction; Z82.49 Family history of ischemic heart disease and other diseases of the circulatory system
CPT/HCPCS: 78452; 93005; 96374; 96375; A9500; J0153

== ENCOUNTER → 2023-05-10 | Outpatient (CLI) | payer OTHER ==
[~2023-05-10] VITALS: Ht 167.6 cm; Wt 84.4 kg
[~2023-05-10] MED LIST changes: -ADENOSINE 70 MG in GIVE UN-DILUTED 0 ML IV ONE; -ADENOSINE 90 MG/30 ML INJ IV ONE
== END | disposition home or self-care (01) ==
LOC: Rad HDHVI 09:11
PROVIDERS: ATTEND Internal Medicine Cardiovascular Disease
DX: I11.0 Hypertensive heart disease with heart failure (principal); I50.43 Acute on chronic combined systolic (congestive) and diastolic (congestive) heart failure; I25.10 Atherosclerotic heart disease of native coronary artery without angina pectoris; I25.5 Ischemic cardiomyopathy; E78.00 Pure hypercholesterolemia, unspecified
CPT/HCPCS: 78472; A9505; 96374; 96375

== ENCOUNTER → 2023-06-28 | Outpatient (CLI) | payer OTHER ==
[2023-06-28 09:53] LABS: Basophils # (auto) 0 10 ^3/uL (0-0.2); Basophils % (auto) 0.7 % (0.0-2.0); Eosinophils # (auto) 0.1 10 ^3/uL (0-0.8); Eosinophils % (auto) 2.9 % (0.0-7.0); Hematocrit 41.4 % (41.0-53.0); Lymphocytes # (auto) 1.5 10 ^3/uL (0.4-5.4); Lymphocytes % (auto) 29.4 % (10.0-50.0); Mean Corpuscular Hemoglobin 35.3 pg (28.0-32.0); Mean Corpuscular Hgb Conc. 33.9 g/dL (32.0-36.0); Mean Corpuscular Volume 104.4 fL (80.0-100.0); Monocytes # (auto) 0.6 10 ^3/uL (0-1.3); Monocytes % (auto) 11.3 % (0.0-12.0); Neutrophils # (auto) 2.9 10 ^3/uL (1.6-8.6); Neutrophils % (auto) 55.7 % (37.0-80.0); Nucleated Red Blood Cells % 0.2 %; Red Blood Cells 3.97 10^6/uL (4.5-5.90); Red Cell Distribution Width 13.3 % (11.8-14.3); White Blood Cell 5.2 10^3/uL (4.4-10.8)
[2023-06-28 10:41] LABS: Alanine Aminotransferase 28 U/L (7-40); Alkaline Phosphatase 62 U/L (46-116); Anion Gap 7 (5-15); Aspartate Aminotransferase 22 U/L (13-40); BUN/Creatinine Ratio 9.3 (10.0-20.0); Blood Urea Nitrogen 13 mg/dL (9-23); Calcium 9.2 mg/dL (8.5-10.1); Carbon Dioxide 26 mmol/L (20-30); Chloride 109 mmol/L (98-107); Cholesterol 102 mg/dL (< 200); Glucose 99 mg/dL (74-106); HDL Cholesterol 35 mg/dL (40-59); LDL Cholesterol 54 mg/dL (< 100); Potassium 4.4 mmol/L (3.5-5.1); Sodium 142 mmol/L (136-145); Total Protein 6.7 g/dL (5.7-8.2); Triglycerides 74 mg/dL (< 150)
== END | disposition home or self-care (01) ==
LOC: LAB 09:38
PROVIDERS: ATTEND Student in an Organized Health Care Education/Training Program
DX: I25.810 Atherosclerosis of coronary artery bypass graft(s) without angina pectoris (principal); D68.69 Other thrombophilia; E78.2 Mixed hyperlipidemia; Z95.0 Presence of cardiac pacemaker
CPT/HCPCS: 36415; 80053; 80061; 85025

== ENCOUNTER → 2023-08-19 | Outpatient (CLI) | payer OTHER | END | disposition home or self-care (01) | LOC: LAB 10:25 | PROVIDERS: ATTEND Family Medicine | DX: D04.22 Carcinoma in situ of skin of left ear and external auricular canal (principal) | CPT/HCPCS: 88302 ==

== ENCOUNTER → 2024-02-21 | Outpatient (CLI) | payer OTHER ==
[~2024-02-21] VITALS: Ht 167.6 cm; Wt 81.6 kg
[~2024-02-21] MED LIST changes: +ADENOSINE 69 MG in GIVE UN-DILUTED 0 ML IV ONE; +ADENOSINE 90 MG/30 ML INJ IV ONE; -ATO40T PO; +ATOR-507 PO; +LOSA-534 PO; -LOSA50TA46 PO
== END | disposition home or self-care (01) ==
LOC: Rad HDHVI 13:23
PROVIDERS: ATTEND Internal Medicine Cardiovascular Disease
DX: I25.2 Old myocardial infarction (principal); E78.00 Pure hypercholesterolemia, unspecified; I11.0 Hypertensive heart disease with heart failure; I50.43 Acute on chronic combined systolic (congestive) and diastolic (congestive) heart failure; I25.10 Atherosclerotic heart disease of native coronary artery without angina pectoris; Z95.1 Presence of aortocoronary bypass graft
CPT/HCPCS: 78452; 93005; 96374; 96375; A9500; J0153

== ENCOUNTER → 2024-02-23 | Outpatient (CLI) | payer OTHER ==
[~2024-02-23] MED LIST changes: -ADENOSINE 69 MG in GIVE UN-DILUTED 0 ML IV ONE; -ADENOSINE 90 MG/30 ML INJ IV ONE
[2024-02-23 09:19] LABS: Basophils # (auto) 0 10 ^3/uL (0-0.2); Eosinophils # (auto) 0.1 10 ^3/uL (0-0.8); Hematocrit 40.8 % (41.0-53.0); Hemoglobin 14.2 g/dL (13.5-17.5); Lymphocytes # (auto) 1.1 10 ^3/uL (0.4-5.4); Mean Corpuscular Hemoglobin 36.4 pg (28.0-32.0); Monocytes # (auto) 0.4 10 ^3/uL (0-1.3); Neutrophils # (auto) 3.2 10 ^3/uL (1.6-8.6); White Blood Cell 4.9 10^3/uL (4.4-10.8)
[2024-02-23 09:21] LABS: Basophils % (auto) 0.8 % (0.0-2.0); Eosinophils % (auto) 1.7 % (0.0-7.0); Lymphocytes % (auto) 22.7 % (10.0-50.0); Mean Corpuscular Hgb Conc. 34.7 g/dL (32.0-36.0); Mean Corpuscular Volume 104.7 fL (80.0-100.0); Monocytes % (auto) 9.1 % (0.0-12.0); Neutrophils % (auto) 65.7 % (37.0-80.0); Red Blood Cells 3.89 10^6/uL (4.5-5.90); Red Cell Distribution Width 13.3 % (11.8-14.3)
[2024-02-23 09:39] LABS: Urine Blood Negative /uL (Negative); Urine Clarity Clear (Clear); Urine Color Light-Yellow (Yellow); Urine Protein, UAD Negative (Negative); Urine Specific Gravity 1.012 (1.001-1.035); Urine Urobilinogen Normal (Negative); Urine pH 5.5 (5.0-9.0)
[2024-02-23 10:26] LABS: Alanine Aminotransferase 19 U/L (7-40); Alkaline Phosphatase 86 U/L (46-116); Anion Gap 9 (5-15); Aspartate Aminotransferase 15 U/L (13-40); BUN/Creatinine Ratio 10.9 (10.0-20.0); Blood Urea Nitrogen 14 mg/dL (9-23); Carbon Dioxide 21 mmol/L (20-30); Chloride 111 mmol/L (98-107); Glucose 93 mg/dL (74-106); LDL Cholesterol 55 mg/dL (< 100); Potassium 4.2 mmol/L (3.5-5.1); Sodium 141 mmol/L (136-145); Triglycerides 74 mg/dL (< 150)
[2024-02-23 10:27] LABS: Cholesterol 106 mg/dL (< 200)
[2024-02-23 10:28] LABS: Bilirubin, Direct 0.7 mg/dL (<0.3); Bilirubin, Total 1.7 mg/dL (0.2-1.0); HDL Cholesterol 41 mg/dL (40-59); Total Protein 6.6 g/dL (5.7-8.2)
== END | disposition home or self-care (01) ==
LOC: LAB 09:05
PROVIDERS: ATTEND Internal Medicine Cardiovascular Disease
DX: C61 Malignant neoplasm of prostate (principal); I10 Essential (primary) hypertension; R53.1 Weakness; E11.9 Type 2 diabetes mellitus without complications; E55.9 Vitamin D deficiency, unspecified; D51.9 Vitamin B12 deficiency anemia, unspecified; R00.2 Palpitations
CPT/HCPCS: 36415; 80048; 80061; 80076; 81003; 83036; 84153; 84403; 84443; 85025

== ENCOUNTER → 2024-02-29 | Outpatient (CLI) | payer OTHER | END | disposition home or self-care (01) | LOC: Rad HDHVI 13:00 | PROVIDERS: ATTEND Internal Medicine Cardiovascular Disease | DX: I11.0 Hypertensive heart disease with heart failure (principal); I50.43 Acute on chronic combined systolic (congestive) and diastolic (congestive) heart failure | CPT/HCPCS: 93306 ==

== ENCOUNTER → 2024-07-03 | Outpatient (CLI) | payer OTHER ==
[2024-07-03 11:33] LABS: Basophils # (auto) 0.1 10 ^3/uL (0-0.2); Eosinophils # (auto) 0.1 10 ^3/uL (0-0.8); Eosinophils % (auto) 1.9 % (0.0-7.0); Hematocrit 40.5 % (41.0-53.0); Hemoglobin 13.8 g/dL (13.5-17.5); Lymphocytes # (auto) 1.2 10 ^3/uL (0.4-5.4); Lymphocytes % (auto) 20.8 % (10.0-50.0); Mean Corpuscular Hemoglobin 35.9 pg (28.0-32.0); Mean Corpuscular Volume 105.8 fL (80.0-100.0); Monocytes # (auto) 0.5 10 ^3/uL (0-1.3); Monocytes % (auto) 8.3 % (0.0-12.0); Platelet Count (auto) 136 10^3/uL (140-450); Red Blood Cells 3.83 10^6/uL (4.5-5.90); Red Cell Distribution Width 12.9 % (11.8-14.3); White Blood Cell 5.9 10^3/uL (4.4-10.8)
[2024-07-03 11:38] LABS: Urine Blood Negative /uL (Negative); Urine Clarity Clear (Clear); Urine Color Light-Yellow (Yellow); Urine Protein, UAD Negative (Negative); Urine Specific Gravity 1.015 (1.001-1.035); Urine Urobilinogen Normal (Negative)
[2024-07-03 12:18] LABS: Alanine Aminotransferase 24 U/L (7-40); Albumin 4.1 g/dL (3.2-4.8); Alkaline Phosphatase 85 U/L (46-116); Anion Gap 7 (5-15); Aspartate Aminotransferase 19 U/L (13-40); BUN/Creatinine Ratio 12.3 (10.0-20.0); Blood Urea Nitrogen 17 mg/dL (9-23); Calcium 9.4 mg/dL (8.7-10.4); Carbon Dioxide 27 mmol/L (20-31); Chloride 110 mmol/L (98-107); Glucose 99 mg/dL (74-106); LDL Cholesterol 49 mg/dL (< 100); Magnesium 2.2 mg/dL (1.6-2.6); Potassium 4.3 mmol/L (3.5-5.1); Prostate Specific Antigen 0.92 ng/mL (0.0-4.0); Sodium 144 mmol/L (136-145); Triglycerides 94 mg/dL (< 150)
[2024-07-03 12:19] LABS: Bilirubin, Total 1.1 mg/dL (0.2-1.0); Cholesterol 104 mg/dL (< 200); HDL Cholesterol 40 mg/dL (40-59); Total Protein 6.7 g/dL (5.7-8.2)
[2024-07-03 12:39] LABS: Folate (Folic Acid) 31.22 ng/mL (>5.38)
[2024-07-03 13:02] LABS: Uric Acid 5.8 mg/dL (3.7-9.2)
== END | disposition home or self-care (01) ==
LOC: LAB 11:05
PROVIDERS: ATTEND Internal Medicine
DX: I10 Essential (primary) hypertension (principal); N40.0 Benign prostatic hyperplasia without lower urinary tract symptoms; I25.10 Atherosclerotic heart disease of native coronary artery without angina pectoris; G81.94 Hemiplegia, unspecified affecting left nondominant side
CPT/HCPCS: 36415; 80053; 80061; 81003; 82306; 82607; 82746; 83036; 83735; 84153; 84443; 84550; 85025; 87086

== ENCOUNTER → 2024-08-03 | Outpatient (CLI) | payer OTHER | END | disposition home or self-care (01) | LOC: LAB 14:48 | PROVIDERS: ATTEND Family Medicine | DX: D48.5 Neoplasm of uncertain behavior of skin (principal) ==

== ENCOUNTER → 2024-12-19 | Outpatient (CLI) | payer OTHER ==
[2024-12-19 10:55] LABS: Urine Bacteria None Seen /hpf (None Seen)
[2024-12-19 11:00] LABS: Basophils # (auto) 0 10 ^3/uL (0-0.2); Eosinophils # (auto) 0.1 10 ^3/uL (0-0.8); Hemoglobin 13.9 g/dL (13.5-17.5); Lymphocytes # (auto) 1.1 10 ^3/uL (0.4-5.4); Monocytes # (auto) 0.4 10 ^3/uL (0-1.3); White Blood Cell 4.5 10^3/uL (4.4-10.8)
[2024-12-19 11:02] LABS: Basophils % (auto) 0.6 % (0.0-2.0); Lymphocytes % (auto) 24.3 % (10.0-50.0); Mean Corpuscular Hemoglobin 36.1 pg (28.0-32.0); Mean Corpuscular Hgb Conc. 34.6 g/dL (32.0-36.0); Mean Corpuscular Volume 104.1 fL (80.0-100.0); Neutrophils # (auto) 2.8 10 ^3/uL (1.6-8.6); Neutrophils % (auto) 63.1 % (37.0-80.0); Platelet Count (auto) 131 10^3/uL (140-450); Red Blood Cells 3.84 10^6/uL (4.5-5.90); Red Cell Distribution Width 13.8 % (11.8-14.3); Urine Blood Negative /uL (Negative); Urine Clarity Clear (Clear); Urine Color Light-Yellow (Yellow); Urine Protein, UAD Negative (Negative); Urine Squamous Epithelial Cell FEW /hpf (<5); Urine Urobilinogen Normal (Negative); Urine WBC < 1 /HPF (0-3)
[2024-12-19 11:24] LABS: Alanine Aminotransferase 20 U/L (7-40); Albumin 4.1 g/dL (3.2-4.8); Alkaline Phosphatase 90 U/L (46-116); Anion Gap 10 (5-15); Aspartate Aminotransferase 18 U/L (13-40); Blood Urea Nitrogen 16 mg/dL (9-23); Calcium 9.5 mg/dL (8.7-10.4); Carbon Dioxide 25 mmol/L (20-31); Chloride 109 mmol/L (98-107); Cholesterol 108 mg/dL (< 200); Glucose 101 mg/dL (74-106); LDL Cholesterol 54 mg/dL (< 100); Potassium 4.3 mmol/L (3.5-5.1); Prostate Specific Antigen 1.22 ng/mL (0.0-4.0); Sodium 144 mmol/L (136-145); Total Protein 6.7 g/dL (5.7-8.2); Triglycerides 69 mg/dL (< 150)
[2024-12-19 11:25] LABS: Bilirubin, Total 1.2 mg/dL (0.2-1.0); HDL Cholesterol 34 mg/dL (40-59)
[2024-12-19 11:26] LABS: BUN/Creatinine Ratio 11.9 (10.0-20.0)
[2024-12-19 11:29] LABS: Folate (Folic Acid) 15.4 ng/mL (>5.38)
[2024-12-19 11:35] LABS: Uric Acid 5.8 mg/dL (3.7-9.2)
== END | disposition home or self-care (01) ==
LOC: LAB 10:40
PROVIDERS: ATTEND Internal Medicine
DX: E61.2 Magnesium deficiency (principal); E55.9 Vitamin D deficiency, unspecified; D51.9 Vitamin B12 deficiency anemia, unspecified; E78.49 Other hyperlipidemia; E79.0 Hyperuricemia without signs of inflammatory arthritis and tophaceous disease; R94.6 Abnormal results of thyroid function studies; R82.79 Other abnormal findings on microbiological examination of urine; R82.998 Other abnormal findings in urine; R73.09 Other abnormal glucose; R68.89 Other general symptoms and signs; R82.90 Unspecified abnormal findings in urine
CPT/HCPCS: 36415; 80053; 80061; 81001; 82306; 82607; 82746; 83036; 84153; 84443; 84550; 85025; 87086

== ENCOUNTER 2025-07-01 10:25 | Outpatient (CLI) | payer OTHER ==
[2025-07-01 11:00] LABS: Hemoglobin 13.9 g/dL (13.5-17.5)
[2025-07-01 11:02] LABS: Hematocrit 40.3 % (41.0-53.0); Mean Corpuscular Hemoglobin 35.7 pg (28.0-32.0); Mean Corpuscular Volume 103.4 fL (80.0-100.0); Nucleated Red Blood Cells % 0.0 %
[2025-07-01 11:28] LABS: Urine Protein, UAD Negative (Negative)
[2025-07-01 11:31] LABS: Alanine Aminotransferase 28 U/L (7-40); Alkaline Phosphatase 95 U/L (46-116); Anion Gap 8 (5-15); BUN/Creatinine Ratio 12.5 (10.0-20.0); Blood Urea Nitrogen 18 mg/dL (9-23); Calcium 9.0 mg/dL (8.7-10.4); Carbon Dioxide 25 mmol/L (20-31); Glucose 93 mg/dL (74-106); Magnesium 2.2 mg/dL (1.6-2.6); Potassium 4.5 mmol/L (3.5-5.1); Sodium 144 mmol/L (136-145); Triglycerides 68 mg/dL (< 150)
[2025-07-01 11:32] LABS: Albumin 4.0 g/dL (3.2-4.8); Total Protein 6.9 g/dL (5.7-8.2)
[2025-07-01 11:33] LABS: Bilirubin, Total 1.1 mg/dL (0.2-1.0); Cholesterol 103 mg/dL (< 200); HDL Cholesterol 43 mg/dL (40-59)
[2025-07-01 11:49] LABS: Chloride 111 mmol/L (98-107)
[2025-07-01 12:59] LABS: Uric Acid 5.7 mg/dL (3.7-9.2)
== END 2025-07-01 17:00 | disposition home or self-care (01) ==
LOC: LAB 10:25
PROVIDERS: ATTEND Internal Medicine
DX: N40.0 Benign prostatic hyperplasia without lower urinary tract symptoms (principal); I13.0 Hypertensive heart and chronic kidney disease with heart failure and stage 1 through stage 4 chronic kidney disease, or unspecified chronic kidney disease; N18.31 Chronic kidney disease, stage 3a; I50.9 Heart failure, unspecified; I25.10 Atherosclerotic heart disease of native coronary artery without angina pectoris
CPT/HCPCS: 36415; 80053; 80061; 81003; 82306; 82607; 83036; 83735; 84443; 84550; 85025; 87086

== ENCOUNTER 2025-07-17 14:01 | Outpatient (CLI) | payer OTHER | END 2025-07-17 17:00 | disposition home or self-care (01) | LOC: Rad HDHVI 14:01 | PROVIDERS: ATTEND Internal Medicine Cardiovascular Disease | DX: Z01.810 Encounter for preprocedural cardiovascular examination (principal); I08.0 Rheumatic disorders of both mitral and aortic valves | CPT/HCPCS: 93306 ==

== ENCOUNTER 2025-07-29 13:27 | Outpatient (CLI) | payer OTHER ==
[~2025-07-29] VITALS: Ht 167.6 cm; Wt 83.9 kg
[2025-07-29] MEDS ORDERED: ADENOSINE 90 MG/30 ML INJ IV ONE (14:23)
[2025-07-29] MEDS ORDERED: ADENOSINE 70 MG in GIVE UN-DILUTED 0 ML IV ONE (16:00)
== END 2025-07-29 17:00 | disposition home or self-care (01) ==
LOC: Rad HDHVI 13:27
PROVIDERS: ATTEND Internal Medicine Cardiovascular Disease
DX: Z01.810 Encounter for preprocedural cardiovascular examination (principal); I49.1 Atrial premature depolarization; I44.0 Atrioventricular block, first degree; R07.9 Chest pain, unspecified; I73.9 Peripheral vascular disease, unspecified; I25.2 Old myocardial infarction; E78.5 Hyperlipidemia, unspecified; I11.0 Hypertensive heart disease with heart failure; I50.43 Acute on chronic combined systolic (congestive) and diastolic (congestive) heart failure; I25.5 Ischemic cardiomyopathy; Z95.1 Presence of aortocoronary bypass graft; Z82.49 Family history of ischemic heart disease and other diseases of the circulatory system
CPT/HCPCS: 78452; 93017; A9500; J0153